=== PATIENT | male | born 1935 | race Caucasian/White ===

== ENCOUNTER → 2018-05-30 | Day surgery (SDC) | payer MEDICARE, BC ==
[2018-05-25 09:14] VITALS: BMI 24.3
[~2018-05-30] MED LIST: ALPRAZolam 0.25 MG TAB PO PRN; ALPRAZolam 0.5 MG TAB PO PRN; ASPIRIN 325 MG TAB PO STA; ATORVASTATIN 80 MG TAB PO STA; BENZOCAINE SPRAY 1 CAN MUCOUS MEM ONE; FUROSEMIDE 10 MG/ML 2 ML VIAL IV ONE; FUROSEMIDE 10 MG/ML 4 ML VIAL ONE; IOPAMIDOL-370 100ML BTL INJ ONE; IV FLUID CONTINUATION 800 ML IV ONE; LIDOCAINE 1% INJ 10MG/ML (20 ML MDV) ONE; LIDOCAINE 1% INJ 10MG/ML (20 ML MDV) SQ ONE; MIDAZOLAM 2 MG/2 ML VIAL IVP ONE; MIDAZOLAM 2 MG/2 ML VIAL ONE; NITROGLYCERIN SL TABS 0.4 MG TAB SUBLINGUAL PRN; SODIUM CHLORIDE 0.9% 1,000 ML IV SCH; SODIUM CHLORIDE 0.9% 1,000 ML in EMPTY BAG 1 BAG IV ONE; diphenhydrAMINE 25 MG CAP PO STA; fentaNYL (PF) 50 MCG/ML 2 ML AMP IVP ONE; fentaNYL (PF) 50 MCG/ML 2 ML AMP ONE
[2018-05-30] MEDS: FUROSEMIDE 10 MG/ML 4 ML VIAL IVP ONE ×2 (08:07→08:52)
[2018-05-30 09:02] VITALS: TEMP 97.8
--- NOTE | 2018-05-30 09:16 | CC ---
CARDIAC CATHETERIZATION REPORT PROCEDURE: Left heart catheterization, coronary angiography and selective injection of bypass grafts. PERFORMED BY: Dr. Nidhi Neely. Moderate conscious sedation time was 31 minutes. Patient was administered Versed and Benadryl and his oxygen saturation, hemodynamics and EKG were monitored closely. CLINICAL INFORMATION: Mr. Neel Martin is an 83-year-old elderly gentleman with a known history of CAD and aortocoronary bypass surgery on two occasions, initially in 1988 with a COTTER to LAD and vein graft to the RCA. In 1998, the vein graft to the RCA was occluded and RCA was occluded, filling by ipsilateral collaterals and he also had disease in the circumflex marginal. In 1998 in January, he had an arterial graft which was gastroepiploic artery to the obtuse marginal graft and this was performed by Dr. Sathya Quintanilla. Since then, he has done well and in 2004 had a cardiac cath which did not reveal the gastroepiploic arteries patency, but this was difficult to inject. COTTER was patent. RCA had collaterals. Over time, he has developed severe aortic stenosis and because of increasing symptoms of shortness of breath and chest tightness, I advised coronary angiography and transesophageal echo and brought him in for the procedure electively after due discussion with the patient and family. The patient was scheduled to have a cardiac cath first and a transesophageal echo to follow by Dr. Hughes. PROCEDURE NOTE: Under local anesthesia and strict aseptic precautions, a 6-Jordanian introducer was placed in the right femoral artery. I used a standard left Patrick catheter to selectively cannulate the left coronary artery. I used a Arielle catheter for the RCA and the same catheter was used for the COTTER injection and also to selectively engage the vein graft to the RCA. The same catheter was used to find the gastroepiploic artery which I could not cannulate. I used a pigtail catheter with a wire to cross the aortic valve and checked LV pressures but did not perform LV gram. Patient tolerated procedure well and all the catheters and sheath was taken out and Angio-Seal device used to secure hemostasis and he was sent to the room in a stable condition. He will have transesophageal echo to follow. CARDIAC CATHETERIZATION FINDINGS: The left ventricular end-diastolic pressure was 28 mmHg. There was a peak gradient of about 40 mmHg across the aortic valve and mean gradient calculated to be about 30 mmHg across the aortic valve making it a moderate to severe aortic stenosis. The left ventricular end-diastolic pressure was elevated at 28 to 30 mmHg. CORONARY ANGIOGRAPHY FINDINGS: LEFT MAIN CORONARY ARTERY: This is totally occluded without any antegrade flow. RIGHT CORONARY ARTERY: This vessel is a dominant one. Very proximally, the vessel is patent, there it gives off what seems to be an acute marginal branch and then the vessel is totally occluded. This acute marginal branch goes out and provides ipsilateral collaterals to opacified the PDA, PLV as well as the distal trunk of RCA. The RCA therefore is totally occluded in the proximal portion, but has ipsilateral collaterals that opacifies the entire distal segment including the PDA and PLV and main trunk. LEFT INTERNAL MAMMARY ARTERY GRAFT TO LAD: this graft is widely patent in its origin, course and insertion site. Opacified LAD runs all the way to the apex and also fills the distal branches of the RCA as well. The circumflex is not opacified by the LAD vessel. There is a diagonal branch also that seems to be patent coming off from the LAD and supplies a fair amount of myocardium. The LAD, therefore is very well opacified with the COTTER injection and also the distal RCA branches are also opacified to some extent. LEFT SAPHENOUS VEIN GRAFT TO THE RCA: This graft is totally occluded and is seen as a stump. GASTROEPIPLOIC ARTERY BYPASS TO THE OBTUSE MARGINAL: I could not cannulate this graft and I presume this was closed because this was not seen on a previous study as well. FINAL IMPRESSION: This patient has a total occlusion of the left main. His right coronary artery is also totally occluded, but there is an acute marginal that provides collaterals opacifying the distal branches of right coronary artery very well. The COTTER to left anterior descending artery is patent, opacifies the entire left anterior descending artery and also the PDA branch of right coronary artery. Circumflex marginal is not seen. Vein graft to the right coronary artery is occluded and the gastroepiploic artery graft to the obtuse marginal, which is an unusual graft is not visualized. This patient also has severe aortic stenosis with a mean gradient of 30 and a peak gradient of about 40 mmHg across the aortic valve. The left ventricle end-diastolic pressure is elevated in the range of 28-30 mmHg. RECOMMENDATIONS: I am recommending a DAPHNEY echo to be performed and following this, we will make a decision regarding the aortic valve replacement for this patient. Possibility of TAVR will be entertained, but first I will look at the DAPHNEY findings and then advise him to see Dr. Sathya Quintanilla regarding TAVR. MMROSAL / CELESTEN: [id number] /
[2018-05-30 09:31] VITALS: RESP 16
--- NOTE | 2018-05-30 09:40 | P.TEE ---
Indications for Procedure(s): To assess aortic stenosis Date of Procedure: 05/30/18 Preoperative Diagnosis: Severe aortic stenosis Postoperative Diagnosis: Moderate to severe aortic stenosis with an opening area of about 1 cm Procedure(s) Performed: DAPHNEY Description of Procedure(s): INDICATION: This is a 82-year-old gentleman with history of ischemic heart disease who has been experiencing shortness of breath. A DAPHNEY is requested to assess the significance of aortic stenosis. CONSENT: Informed consent is obtained from the patient verbally PROCEDURE: Patient was brought to the lab in a fasting state. He was prepped and draped in the usual fashion. The throat was sprayed with Hurricaine. Patient was given 1 mg of Versed and 25 mg of fentanyl for sedation. A lubricated Omni probe was then introduced into the oropharynx and was advanced into the esophagus. Patient tolerated the procedure well. No immediate complications. Saline bubble injection and color pulse wave Doppler's and continuous-wave Doppler was performed. FINDINGS: The aortic valve seems to be tricuspid and calcific with reduced opening excursion. By planimetry valve area of about 0.9-1 cm was obtained. There is moderate aortic regurgitation. The peak gradient was 40 with a mean of about 20. The mitral valve showed central mild regurgitation. The left atrial appendage is free of any clot. The venous flow in the pulmonary veins appear to be normal. The interatrial septum appeared to be intact without any spontaneous shunt. Injection of the saline contrast bubbles did not reveal any crossing of the bubbles across the interatrial septum. The interatrial septum appeared to be hyperdynamic and aneurysmal. Mild tricuspid regurgitation noted. Left ankle function appears to be moderately impaired. There is a moderate to severe plaque in the aorta IMPRESSION: #1. Borderline severe aortic stenosis. #2. Moderately severe aortic regurgitation #3. Mild mitral regurgitation #4. No PFO. The interatrial septum, however, appear to be aneurysmal. #5. No clot in left atrial appendage. #6. There is moderate to severe plaque in the aorta PLAN:. Further evaluation by cardiac catheterization. May consider for possible aortic valve replacement
[2018-05-30] MEDS: IPRATROPIUM 0.5 MG/2.5 ML NEBU INHALATION SCH ×2 (10:27→14:35)
[2018-05-30 16:13] VITALS: BP 119/55; PULSE 55
== END ==
LOC: CATHCVL 07:00
PROVIDERS: ATTEND Internal Medicine Interventional Cardiology
DX: I08.3 Combined rheumatic disorders of mitral, aortic and tricuspid valves (principal); I25.10 Atherosclerotic heart disease of native coronary artery without angina pectoris; I25.810 Atherosclerosis of coronary artery bypass graft(s) without angina pectoris; I25.82 Chronic total occlusion of coronary artery; I25.5 Ischemic cardiomyopathy; I10 Essential (primary) hypertension; I73.9 Peripheral vascular disease, unspecified; Z82.49 Family history of ischemic heart disease and other diseases of the circulatory system; Z72.0 Tobacco use; Z88.8 Allergy status to other drugs, medicaments and biological substances; Z79.82 Long term (current) use of aspirin; Z79.51 Long term (current) use of inhaled steroids; Z79.899 Other long term (current) drug therapy
CPT/HCPCS: 94640 ×2; 93312; 93320; 93325; 93459; C1760; C1769 ×2; C1894; J2250; J1940; J2001; J3010; Q9967

== ENCOUNTER 2018-12-03 21:05 | Inpatient (IN) | payer MEDICARE, BC ==
[2018-12-03 21:51] LABS: Basophils % (A) 0 %; Eosinophils # (A) 0.2 k/uL (0-0.7); Eosinophils % (A) 2 %; HCT 39.8 % (39.0-53.0); HGB 13.2 gm/dL (13.0-17.5); Lymphocytes # (A) 0.1 k/uL (1.0-4.8); Lymphocytes % (A) 1 %; MCH 31.2 pg (25.0-35.0); MCHC 33.1 g/dL (31.0-37.0); MCV 94.2 fL (80.0-100.0); Mean Platelet Volume 7.2; Monocytes # (A) 0.1 k/uL (0-1.0); Monocytes % (A) 1 %; Neutrophils # (A) 9.3 k/uL (1.3-7.7); Neutrophils % (A) 95 %; Platelet Count 127 k/uL (150-450); RBC 4.22 m/uL (4.30-5.90); RDW 15.1 % (11.5-15.5); WBC 9.8 k/uL (3.8-10.6)
[2018-12-03 22:03] LABS: Calcium 8.6 mg/dL (8.4-10.2); Potassium 4.1 mmol/L (3.5-5.1)
[2018-12-03] MEDS ORDERED: IPRATROPIUM-ALBUTEROL 3 ML NEB INHALATION STA (23:05)
--- NOTE | 2018-12-03 23:06 | ED ---
General Adult HPI - General Chief complaint: Shortness of Breath Stated complaint: CHF exasperation Time Seen by Provider: 12/03/18 21:10 Source: EMS Mode of arrival: EMS - History of Present Illness Initial comments: 83-year-old male presenting as a transfer with a diagnosis of CHF and pneumonia. Patient said 1 week prior he became more short of breath which was accompanied by a productive cough of green sputum. He denies any chest pain fever chills. Patient has a history of CABG 33 years ago and intermittent O2 use. He also has a history of COPD and uses DuoNeb's 5 times daily. At the outside facility the patient was tachycardic but normotensive. He had chest x-ray that showed congestion, patchy infiltrate bilaterally in the lower lobes and CHF. He was given 40 mg of Lasix, as well as Levaquin for community acquired pneumonia. 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 Patient's troponin was mildly elevated at 0.03. He was not given aspirin at the outside facility. Patient has a history of AAA with repair. He denies any abdominal pain. He sta salvador he is scheduled for a valve replacement and has had outpatient DAPHNEY done at an outside facility. - Related Data Home Medications Medication Instructions Recorded Confirmed Aspirin 81 mg PO HS 11/22/14 12/03/18 Atenolol [Tenormin] 50 mg PO HS 11/22/14 12/03/18 Losartan [Cozaar] 50 mg PO DAILY 11/22/14 12/03/18 amLODIPine [Norvasc] 5 mg PO DAILY 11/22/14 12/03/18 Tamsulosin HCl [Flomax] 0.4 mg PO BID 12/03/18 12/03/18 Allergies Allergy/AdvReac Type Severity Reaction Status Date / Time No Known Allergies Allergy Verified 12/03/18 22:05 Review of Systems ROS Statement: Those systems with pertinent positive or pertinent negative responses have been documented in the HPI. Review of Systems Constitutional: Denies fever, chills Eyes: Denies change in vision, Denies pain Ears, nose, mouth, throat: Denies headaches, Denies sore throat Cardiovascular: Denies chest pain. Denies palpitations Respiratory: Positive shortness of breath, Positive cough Gastrointestinal: Denies abdominal pain. Denies nausea, vomiting, diarrhea. Genitourinary: Denies hematuria, Denies infections Musculoskeletal: Denies pain, Denies swelling Integumentary: Denies rash Neurological: Denies headache, focal weakness, focal numbness Psychiatric: Denies anxiety, Denies depression Hematologic/Lymphatic: Denies easy bleeding or bruising ROS Other: All systems not noted in ROS Statement are negative. Past Medical History Past Medical History: Coronary Artery Disease (CAD), Heart Failure, COPD, Hypertension, Myocardial Infarction ([place]) Additional Past Medical History / Comment(s): Congestion heart failure with ejection fraction of around 25%, moderate to severe aortic stenosis, monoclonal gammopathy, carotid artery disease with previous endarterectomy, degenerative arthritis, abdominal hernia, history of bowel obstruction, kidney stones, hernia Last Myocardial Infarction Date:: 2004 History of Any Multi-Drug Resistant Organisms: None Reported Past Surgical History: Bowel Resection, Coronary Bypass/CABG Additional Past Surgical History / Comment(s): open heart x 2, abdominal aneursym, calvin carotid endartectomy Past Anesthesia/Blood Transfusion Reactions: No Reported Reaction Additional Past Anesthesia/Blood Transfusion Reaction / Comment(s): STATES HAD TROUBLE "CODED" AFTER CAROTID ENDARTECTOMY Past Psychological History: No Psychological Hx Reported Smoking Status: Former smoker Past Alcohol Use History: Daily - Past Family History Father Family Medical History: No Reported History General Exam - General Exam Comments Initial Comments: General: Awake, alert, No acute Distress HENT: Normocephalic. Atraumatic Eyes: PERRL. EOMI. No scleral icterus. No injected conjunctiva Neck: Full ROM Chest/Lungs: Rales diffusely Cardiac: Regular rate, rhythm. Rate 3 systolic murmur. JVD. Lower extremity pitting edema Abdomen/GI: Soft, nontender, nondistended. No rebound, guarding, or rigidity. Musculoskeletal: Full ROM Skin: Warm, dry, intact Neurologic: A/Ox3, no weakness, no sensory deficit, no abnormal gait, no coordination deficit Course Vital Signs 12/03/18 12/03/18 12/03/18 21:30 23:17 23:26 Temperature 97.6 F Pulse Rate 75 72 76 Respiratory 19 18 18 Rate Blood Pressure 120/66 O2 Sat by Pulse 95 Oximetry EKG Findings - EKG Comments: EKG Findings:: EKG shows normal sinus rhythm with a left bundle branch block at a rate of 78 bpm. ID interval 180 ms, QRS duration 190 ms, QT/QTC 480/547 ms. Medical Decision Making - Medical Decision Making 83-year-old male presenting from outside facility with CHF and pneumonia. Initial exam the patient is awake, alert, no acute distress. Troponin now 1.2. The patient's increasing troponin will start him on heparin. Discussed this with the patient and his family who are agreeable. Denies any recent GI bleeding. Patient was started on Rocephin and Azithromycin. He was also started on Lasix Q8hr. He was not given any in the ED because he was given some at the outside hospital. Patient to be admitted to Dr. Crabtree with cardiology on consu lt. - Lab Data Result diagrams: 12/03/18 21:41 12/03/18 21:41 Lab Results 12/03/18 12/03/18 12/03/18 Range/Units 21:41 21:41 21:41 WBC 9.8 (3.8-10.6) k/uL RBC 4.22 L (4.30-5.90) m/uL Hgb 13.2 (13.0-17.5) gm/dL Hct 39.8 (39.0-53.0) % MCV 94.2 (80.0-100.0) fL MCH 31.2 (25.0-35.0) pg MCHC 33.1 (31.0-37.0) g/dL RDW 15.1 (11.5-15.5) % Plt Count 127 L (150-450) k/uL Neutrophils % 95 % Lymphocytes % 1 % Monocytes % 1 % Eosinophils % 2 % Basophils % 0 % Neutrophils # 9.3 H (1.3-7.7) k/uL Lymphocytes # 0.1 L (1.0-4.8) k/uL Monocytes # 0.1 (0-1.0) k/uL Eosinophils # 0.2 (0-0.7) k/uL Basophils # 0.0 (0-0.2) k/uL Sodium 132 L (137-145) mmol/L Potassium 4.1 (3.5-5.1) mmol/L Chloride 101 (98-107) mmol/L Carbon Dioxide 23 (22-30) mmol/L Anion Gap 8 mmol/L BUN 24 H (9-20) mg/dL Creatinine 1.27 H (0.66-1.25) mg/dL Est GFR (CKD-EPI)AfAm 60 (>60 ml/min/1.73 sqM) Est GFR (CKD-EPI)NonAf 52 (>60 ml/min/1.73 sqM) Glucose 138 H (74-99) mg/dL Calcium 8.6 (8.4-10.2) mg/dL Troponin I (0.000-0.034) ng/mL NT-Pro-B Natriuret Pep 27676 pg/mL 12/03/18 Range/Units 21:41 WBC (3.8-10.6) k/uL RBC (4.30-5.90) m/uL Hgb (13.0-17.5) gm/dL Hct (39.0-53.0) % MCV (80.0-100.0) fL MCH (25.0-35.0) pg MCHC (31.0-37.0) g/dL RDW (11.5-15.5) % Plt Count (150-450) k/uL Neutrophils % % Lymphocytes % % Monocytes % % Eosinophils % % Basophils % % Neutrophils # (1.3-7.7) k/uL Lymphocytes # (1.0-4.8) k/uL Monocytes # (0-1.0) k/uL Eosinophils # (0-0.7) k/uL Basophils # (0-0.2) k/uL Sodium (137-145) mmol/L Potassium (3.5-5.1) mmol/L Chloride (98-107) mmol/L Carbon Dioxide (22-30) mmol/L Anion Gap mmol/L BUN (9-20) mg/dL Creatinine (0.66-1.25) mg/dL Est GFR (CKD-EPI)AfAm (>60 ml/min/1.73 sqM) Est GFR (CKD-EPI)NonAf (>60 ml/min/1.73 sqM) Glucose (74-99) mg/dL Calcium (8.4-10.2) mg/dL Troponin I 1.280 H* (0.000-0.034) ng/mL NT-Pro-B Natriuret Pep pg/mL Disposition Clinical Impression: CHF (congestive heart failure), CAP (community acquired pneumonia), NSTEMI (non-ST elevated myocardial infarction) Disposition: ADMITTED IP TO THIS HOSP Condition: Good Decision to Admit Reason: Admit from EC Decision Date: 12/03/18 Decision Time: 23:36
[2018-12-03] MEDS ORDERED: HEPARIN SODIUM,PORCINE 5,000 UNIT/ML 1 ML VIAL IV PRN (23:55)
[2018-12-03] MEDS ORDERED: HEPARIN SODIUM,PORCINE 5,000 UNIT/ML 1 ML VIAL IV ONE (23:55)
[2018-12-03] MEDS ORDERED: NITROGLYCERIN SL TABS 0.4 MG TAB SUBLINGUAL PRN (23:56)
[2018-12-04] MEDS: HEPARIN SOD,PORK IN 0.45% NACL 25,000 UNIT in 0.45% NACL 1 250ML.BAG IV SCH ×3 (00:31→15:46)
[2018-12-04 02:37] VITALS: BMI 51.8
[2018-12-04 05:37] LABS: Basophils % (A) 0 %; Eosinophils # (A) 0.1 k/uL (0-0.7); Eosinophils % (A) 1 %; HCT 38.5 % (39.0-53.0); HGB 12.7 gm/dL (13.0-17.5); Lymphocytes # (A) 0.3 k/uL (1.0-4.8); Lymphocytes % (A) 4 %; MCH 31.6 pg (25.0-35.0); Mean Platelet Volume 8.3; Monocytes # (A) 0.2 k/uL (0-1.0); Monocytes % (A) 3 %; Neutrophils # (A) 6.3 k/uL (1.3-7.7); Neutrophils % (A) 92 %; Platelet Count 132 k/uL (150-450); RBC 4.01 m/uL (4.30-5.90); RDW 15.1 % (11.5-15.5); WBC 6.9 k/uL (3.8-10.6)
[2018-12-04 05:45] LABS: INR 1.1 (<1.2); Partial Thromboplastin Time 95.8 sec (22.0-30.0); Prothrombin Time 11.3 sec (9.0-12.0)
[2018-12-04 06:15] LABS: Albumin 2.9 g/dL (3.5-5.0); Calcium 8.4 mg/dL (8.4-10.2); Potassium 4.1 mmol/L (3.5-5.1); Total Bilirubin 0.9 mg/dL (0.2-1.3); Total Protein 5.1 g/dL (6.3-8.2)
[2018-12-04] MEDS: LOSARTAN 50 MG TAB PO SCH (08:06)
[2018-12-04] MEDS: TAMSULOSIN 0.4 MG CAP.ER.24H PO SCH ×2 (08:06→22:34)
[2018-12-04] MEDS: ASPIRIN 325 MG TAB PO SCH (08:07)
[2018-12-04] MEDS: amLODIPine 5 MG TAB PO SCH (08:07)
[2018-12-04] MEDS: FUROSEMIDE 10 MG/ML 4 ML VIAL IV SCH ×2 (08:07→15:57)
[2018-12-04] MEDS: AZITHROMYCIN 500 MG in SODIUM CHLORIDE 0.9% 250 ML IVPB SCH (08:16)
[2018-12-04] MEDS: IPRATROPIUM-ALBUTEROL 3 ML NEB INHALATION SCH ×4 (08:22→20:33)
--- NOTE | 2018-12-04 08:47 | XR ---
EXAMINATION TYPE: XR chest 1V portable DATE OF EXAM: 12/04/2018 COMPARISON: 11/21/2014 INDICATION: CHF, pneumonia TECHNIQUE: Single frontal view of the chest is obtained. FINDINGS: The heart size is moderately prominent. The pulmonary vasculature is normal. Some minimal linear opacities at the lung bases more likely due to plate atelectasis. IMPRESSION: 1. Bibasilar platelike atelectasis at the diaphragms. 2. Moderate cardiomegaly
--- NOTE | 2018-12-04 08:55 | P.CRDCN ---
History of Present Illness Consult date: 12/04/18 Chief complaint: Shortness of breath History of present illness: This is an 83-year-old gentleman who sees Dr. HERBIE Neely in the office on regular basis with a past medical history significant for coronary artery disease and status post coronary artery bypass grafting twice, known severe aortic stenosis, known severe aortic insufficiency, advanced chronic obstructive pulmonary disease currently on oxygen at home, as well as multiple comorbid conditions, was admitted to the hospital with shortness of breath. The patient underwent a heart catheterization in May [address] HERBIE Neely and that revealed occluded left main and occluded right coronary artery with patent COTTER to LAD which opacify the LAD very well and also gives collateral to the right coronary artery. At the same time, he underwent transesophageal echocardiogram which r evealed normal LV function with evidence off moderate to severe aortic stenosis and moderate to severe aortic insufficiency. At that point the patient was referred to undergo transcutaneous aortic valve replacement. He was seen by Dr. Quintanilla at that point I subsequently he was seen at [facility]. He was requested to have his teeth workup before the procedure and the patient is currently is doing that. This time, he stated that for the last few days, he has been more short of breath and beside that he has been experiencing cough productive of colored sputum. No fever and no chills. No symptoms of chest pain or chest discomfort. He did develop severe bilateral lower extremities edema. He underwent a chest x-ray and that revealed evidence of congestive heart failure with possible pneumonia. The BMP was checked and came in to be at 15,000. The creatinine is slightly abnormal but it seems to be his baseline from before. Beside that the troponin came in to be elevated at 12.9. The EKG showed sinus rhythm with sinus tachycardia and LBBB. The patient currently is on heparin IV, he is on antibiotic for the pneumonia, and he is on Lasix as well as. He stated that he is feeling better overall. Past Medical History Past Medical History: Coronary Artery Disease (CAD), Heart Failure, COPD, Hypertension, Myocardial Infarction ([place]) Additional Past Medical History / Comment(s): Congestion heart failure with ejec tion fraction of around 25%, moderate to severe aortic stenosis, monoclonal gammopathy, carotid artery disease with previous endarterectomy, degenerative arthritis, abdominal hernia, history of bowel obstruction, kidney stones, hernia Last Myocardial Infarction Date:: 2004 History of Any Multi-Drug Resistant Organisms: None Reported Past Surgical History: Bowel Resection, Coronary Bypass/CABG Additional Past Surgical History / Comment(s): open heart x 2, abdominal aneursym, calvin carotid endartectomy Past Anesthesia/Blood Transfusion Reactions: No Reported Reaction Additional Past Anesthesia/Blood Transfusion Reaction / Comment(s): STATES HAD TROUBLE "CODED" AFTER CAROTID ENDARTECTOMY Past Psychological History: No Psychological Hx Reported Smoking Status: Former smoker Past Alcohol Use History: Daily - Past Family History Father Family Medical History: No Reported History Medications and Allergies Home Medications Medication Instructions Recorded Confirmed Type Aspirin 81 mg PO HS 11/22/14 12/03/18 History Atenolol [Tenormin] 50 mg PO HS 11/22/14 12/03/18 History Losartan [Cozaar] 50 mg PO DAILY 11/22/14 12/03/18 History amLODIPine [Norvasc] 5 mg PO DAILY 11/22/14 12/03/18 History Tamsulosin HCl [Flomax] 0.4 mg PO BID 12/03/18 12/03/18 History Allergies Allergy/AdvReac Type Severity Reaction Status Date / Time No Known Allergies Allergy Verified 12/03/18 22:05 Physical Exam Vitals: Vital Signs Temp Pulse Pulse Resp BP BP Pulse Ox 12/04/18 08:36 92 12/04/18 08:22 88 12/04/18 08:19 74 12/04/18 07:48 97.4 F L 74 16 120/63 97 12/04/18 04:00 97.6 F 68 16 118/62 100 12/04/18 00:42 80 20 106/65 94 L 12/04/18 00:12 97.8 F 64 20 122/68 97 12/03/18 23:26 76 18 12/03/18 23:17 72 18 12/03/18 21:30 97.6 F 75 19 120/66 95 Intake and Output 12/03/18 12/04/18 12/04/18 22:59 06:59 14:59 Intake Total 56.96 0 Output Total 100 Balance -43.04 0 Intake: Intake, IV Titration 56.96 0 Amount Heparin Sod,Pork in 0.45% 56.96 0 NaCl 25,000 unit In 0.45 % NaCl 1 250ml.bag @ 12 UNITS/KG/HR 9.906 mls/hr IV .Q24H [facility] Rx#: [id number] Output: Urine 100 Other: Weight 82.554 kg - Constitutional General appearance: no acute distress - Respiratory Respiratory: bilateral: rales - Cardiovascular Rhythm: regular Heart sounds: normal: S1 Abnormal Heart Sounds: systolic murmur Results 12/04/18 05:22 12/04/18 05:22 Cardiac Enzymes 12/03/18 12/04/18 12/04/18 Range/Units 21:41 03:16 05:22 AST 30 (17-59) U/L Troponin I 1.280 H* 1.910 H* (0.000-0.034) ng/mL Coagulation 12/04/18 Range/Units 05:22 PT 11.3 (9.0-12.0) sec APTT 95.8 H (22.0-30.0) sec Lipids 12/04/18 Range/Units 05:22 Triglycerides 48 (<150) mg/dL Cholesterol 167 (<200) mg/dL HDL Cholesterol 71 H (40-60) mg/dL CBC 12/03/18 12/04/18 Range/Units 21:41 05:22 WBC 9.8 6.9 (3.8-10.6) k/uL RBC 4.22 L 4.01 L (4.30-5.90) m/uL Hgb 13.2 12.7 L (13.0-17.5) gm/dL Hct 39.8 38.5 L (39.0-53.0) % Plt Count 127 L 132 L (150-450) k/uL Comprehensive Metabolic Panel 12/03/18 12/04/18 Range/Units 21:41 05:22 Sodium 132 L 135 L (137-145) mmol/L Potassium 4.1 4.1 (3.5-5.1) mmol/L Chloride 101 102 (98-107) mmol/L Carbon Dioxide 23 27 (22-30) mmol/L BUN 24 H 30 H (9-20) mg/dL Creatinine 1.27 H 1.48 H (0.66-1.25) mg/dL Glucose 138 H 160 H (74-99) mg/dL Calcium 8.6 8.4 (8.4-10.2) mg/dL AST 30 (17-59) U/L ALT 36 (21-72) U/L Alkaline Phosphatase 47 (38-126) U/L Total Protein 5.1 L (6.3-8.2) g/dL Albumin 2.9 L (3.5-5.0) g/dL Current Medications Generic Name Dose Route Start Last Admin Trade Name Freq PRN Reason Stop Dose Admin Albuterol/Ipratropium 3 ml 12/04/18 08:00 12/04/18 08:22 Duoneb 0.5 Mg-3 Mg/3 Ml Soln INHALATION 3 ml RT-QID ALAN Administration Amlodipine Besylate 5 mg 12/04/18 09:00 12/04/18 08:07 Norvasc PO 5 mg DAILY ALAN Administration Aspirin 325 mg 12/04/18 09:00 12/04/18 08:07 Aspirin PO 325 mg DAILY ALAN Administration Atenolol 50 mg 12/04/18 21:00 Tenormin PO HS ALAN Furosemide 40 mg 12/04/18 08:00 12/04/18 08:07 Lasix IV 40 mg Q8HR ALAN Administration Heparin Sodium (Porcine) 0 unit 12/03/18 23:55 Heparin IV PER PROTOCOL PRN Low PTT Protocol Heparin Sodium/Sodium Chloride 250 mls @ 9.906 mls/hr 12/03/18 23:45 12/04/18 07:42 25,000 unit/ Sodium Chloride IV 9 units/kg/hr .Q24H ALAN 7.43 mls/hr Administration Protocol 12 UNITS/KG/HR Azithromycin 500 mg/ Sodium 250 mls @ 250 mls/hr 12/04/18 09:00 12/04/18 08:16 Chloride IVPB 250 mls/hr DAILY ALAN Administration Ceftriaxone Sodium 1 gm/ 50 mls @ 100 mls/hr 12/04/18 09:00 12/04/18 08:07 Sodium Chloride IVPB 100 mls/hr Q24HR ALAN Administration Losartan Potassium 50 mg 12/04/18 09:00 12/04/18 08:06 Cozaar PO 50 mg DAILY ALAN Administration Nitroglycerin 0.4 mg 12/03/18 23:56 Nitrostat SUBLINGUAL Q5M PRN Chest Pain Tamsulosin HCl 0.4 mg 12/04/18 09:00 12/04/18 08:06 Flomax PO 0.4 mg BID ALAN Administration Intake and Output 12/03/18 12/04/18 12/04/18 22:59 06:59 14:59 Intake Total 56.96 0 Output Total 100 Balance -43.04 0 Intake: Intake, IV Titration 56.96 0 Amount Heparin Sod,Pork in 0.45% 56.96 0 NaCl 25,000 unit In 0.45 % NaCl 1 250ml.bag @ 12 UNITS/KG/HR 9.906 mls/hr IV .Q24H [facility] Rx#: [id number] Output: Urine 100 Other: Weight 82.554 kg 12/04/18 05:22 12/04/18 05:22 Assessment and Plan Assessment: Assessment #1 acute hypoxic respiratory failure #2 congestive heart failure exacerbation likely secondary to diastolic dysfunction and aortic stenosis #3 pneumonia #4 COPD exacerbation #5 severe aortic stenosis and aortic insufficiency #6 severe underlying coronary artery disease as described above #7 acute non-ST elevation myocardial infarction #8 multiple comorbid conditions including hypertension, dyslipidemia, and history of AAA repair Plan #1 the acute non-ST deviation myocardial infarction is likely to be type II [place] related to hypoxemia and oxygen mismatch #2 giving the above anatomy on his recent heart catheterization in May, I would not recommend proceeding with any coronary angiogram at this point #3 continue the heparin IV for additional 24 hours #4 continue the Lasix IV for now #5 monitor the kidney function and electrolytes #6 he is on antibiotic for possible pneumonia #7 I will repeat the echocardiogram #8 follow-up with the patient Thank you for allowing us participate in his care and we will continue following up with the patient
[2018-12-04] MEDS ORDERED: AZITHROMYCIN 500 MG in SODIUM CHLORIDE 0.9% 250 ML IVPB SCH (09:00)
[2018-12-04] MEDS ORDERED: cefTRIAXone IN SWFI 1,000 MG/10 ML SYRINGE IVP SCH (09:00)
--- NOTE | 2018-12-04 10:11 | P.HPIM ---
History of Present Illness H&P Date: 12/04/18 This is an 83-year-old male patient of Dr. Israel. Patient presented with complaints of increased shortness of breath. Patient reports his symptoms started approximately 1 week ago. Patient also reports that he has had increased sputum production with green sputum. Patient denies any fevers. [place] also reports he had increased peripheral edema. Patient does have a past medical history of coronary artery disease status post coronary artery bypass graft surgery twice. Patient recently underwent cardiac cath in May 2018 and DAPHNEY which revealed severe aortic stenosis severe aortic insufficiency. Patient reports that he was evaluated by our cardiothoracic team was seen at [facility] in which they referred him to undergo transcutaneous aortic valve replacement. Patient reports he has been doing the pre-op workup including dental work in which he has completed. Additional medical history includes congestive heart failure with an EF of 25%, degenerative arthritis, COPD, hy pertension, bowel obstruction and myocardial infarction. EKG completed showing normal sinus rhythm. Left bundle branch block. X-ray completed showing bibasilar platelike atelectasis at the diaphragms. Moderate cardiomegaly. Troponins 1.280, 1.910. Started on heparin drip and cardiology services have been consulted. ENT elevated at 14,400. Patient started on IV Lasix 40 mg every 8 hours. Sputum culture ordered. Patient started on Zithromax and Rocephin for pneumonia. Pulmonary services have been consulted. At this time patient reports he does feel improved. Still having significant sputum production. Patient denies chest pain. Patient denies any nausea vomiting or diarrhea. Patient denies any urinary burning or frequency Review of Systems please refer to HPI otherwise unremarkable Past Medical History Past Medical History: Coronary Artery Disease (CAD), Heart Failure, COPD, Hypertension, Myocardial Infarction ([place]) Additional Past Medical History / Comment(s): Congestion heart failure with ejection fraction of around 25%, moderate to severe aortic stenosis, monoclonal gammopathy, carotid artery disease with previous endarterectomy, degenerative arthritis, abdominal hernia, history of bowel obstruction, kidney stones, hernia Last Myocardial Infarction Date:: 2004 History of Any Multi-Drug Resistant Organisms: None Reported Past Surgical History: Bowel Resection, Coronary Bypass/CABG Additional Past Surgical History / Comment(s): open heart x 2, abdominal aneursym, calvin carotid endartectomy Past Anesthesia/Blood Transfusion Reactions: No Reported Reaction Additional Past Anesthesia/Blood Transfusion Reaction / Comment(s): STATES HAD TROUBLE "CODED" AFTER CAROTID ENDARTECTOMY Past Psychological History: No Psychological Hx Reported Smoking Status: Former smoker Past Alcohol Use History: Daily - Past Family History Father Family Medical History: No Reported History Medications and Allergies Home Medications Medication Instructions Recorded Confirmed Type Aspirin 81 mg PO HS 11/22/14 12/03/18 History Atenolol [Tenormin] 50 mg PO HS 11/22/14 12/03/18 History Losartan [Cozaar] 50 mg PO DAILY 11/22/14 12/03/18 History amLODIPine [Norvasc] 5 mg PO DAILY 11/22/14 12/03/18 History Tamsulosin HCl [Flomax] 0.4 mg PO BID 12/03/18 12/03/18 History Allergies Allergy/AdvReac Type Severity Reaction Status Date / Time No Known Allergies Allergy Verified 12/03/18 22:05 Physical Exam Vitals: Vital Signs Temp Pulse Pulse Resp BP BP Pulse Ox 12/04/18 08:36 92 12/04/18 08:22 88 12/04/18 08:19 74 12/04/18 07:48 97.4 F L 74 16 120/63 97 12/04/18 04:00 97.6 F 68 16 118/62 100 12/04/18 00:42 80 20 106/65 94 L 12/04/18 00:12 97.8 F 64 20 122/68 97 12/03/18 23:26 76 18 12/03/18 23:17 72 18 12/03/18 21:30 97.6 F 75 19 120/66 95 Intake and Output 12/03/18 12/04/18 12/04/18 22:59 06:59 14:59 Intake Total 56.96 240 Output Total 100 350 Balance -43.04 -110 Intake: Intake, IV Titration 56.96 0 Amount Heparin Sod,Pork in 0.45% 56.96 0 NaCl 25,000 unit In 0.45 % NaCl 1 250ml.bag @ 12 UNITS/KG/HR 9.906 mls/hr IV .Q24H [facility] Rx#: [id number] Oral 240 Output: Urine 100 350 Other: Weight 82.554 kg Head normocephalic Neck supple Lungs diminished bilaterally Heart regular rate and rhythm S1-S2, no rub or gallop Abdomen is soft nontender nondistended positive bowel sounds no hepatosplenomegaly Extremities +1 bilateral lower extremity edema Neuro alert and orientated to 3 Results CBC & Chem 7: 12/04/18 05:22 12/04/18 05:22 Labs: Abnormal Lab Results - Last 24 Hours (Table) 12/03/18 12/03/18 12/03/18 Range/Units 21:41 21:41 21:41 RBC 4.22 L (4.30-5.90) m/uL Hgb (13.0-17.5) gm/dL Hct (39.0-53.0) % Plt Count 127 L (150-450) k/uL Neutrophils # 9.3 H (1.3-7.7) k/uL Lymphocytes # 0.1 L (1.0-4.8) k/uL APTT (22.0-30.0) sec Sodium 132 L (137-145) mmol/L BUN 24 H (9-20) mg/dL Creatinine 1.27 H (0.66-1.25) mg/dL Glucose 138 H (74-99) mg/dL Troponin I 1.280 H* (0.000-0.034) ng/mL Total Protein (6.3-8.2) g/dL Albumin (3.5-5.0) g/dL HDL Cholesterol (40-60) mg/dL 12/04/18 12/04/18 12/04/18 Range/Units 03:16 05:22 05:22 RBC 4.01 L (4.30-5.90) m/uL Hgb 12.7 L (13.0-17.5) gm/dL Hct 38.5 L (39.0-53.0) % Plt Count 132 L (150-450) k/uL Neutrophils # (1.3-7.7) k/uL Lymphocytes # 0.3 L (1.0-4.8) k/uL APTT 95.8 H (22.0-30.0) sec Sodium (137-145) mmol/L BUN (9-20) mg/dL Creatinine (0.66-1.25) mg/dL Glucose (74-99) mg/dL Troponin I 1.910 H* (0.000-0.034) ng/mL Total Protein (6.3-8.2) g/dL Albumin (3.5-5.0) g/dL HDL Cholesterol (40-60) mg/dL 12/04/18 Range/Units 05:22 RBC (4.30-5.90) m/uL Hgb (13.0-17.5) gm/dL Hct (39.0-53.0) % Plt Count (150-450) k/uL Neutrophils # (1.3-7.7) k/uL Lymphocytes # (1.0-4.8) k/uL APTT (22.0-30.0) sec Sodium 135 L (137-145) mmol/L BUN 30 H (9-20) mg/dL Creatinine 1.48 H (0.66-1.25) mg/dL Glucose 160 H (74-99) mg/dL Troponin I (0.000-0.034) ng/mL Total Protein 5.1 L (6.3-8.2) g/dL Albumin 2.9 L (3.5-5.0) g/dL HDL Cholesterol 71 H (40-60) mg/dL Thrombosis Risk Factor Assmnt - Choose All That Apply Each Factor Represents 1 point: Abnormal pulmonary function (COPD), Acute ID, Heart failure (<1month), Serious lung disease incl. pneumonia (< 1month) Other Risk Factors: Yes Each Risk Factor Represents 3 Points: Age 75 years or older Other congenital or acquired thrombophilia - If yes, enter type in comment: No Thrombosis Risk Factor Assessment Total Risk Factor Score: 7 Thrombosis Risk Factor Assessment Level: High Risk Assessment and Plan Assessment: 1. Acute hypoxic respiratory failure related to CHF exacerbation and pneumonia. Chest x-ray completed showing bibasilar platelike atelectasis at the diaphragm. Moderate cardiomegaly. Cardiology services have been consulted. Pulmonary service is consulted. Patient started on Rocephin and Zithromax IV an tibiotics. Sputum culture ordered 2. Acute on chronic diastolic just of heart failure. Patient maintained on 40 mg IV Lasix BNP elevated at 14,400. Cardiology services have been consulted. 2-D echo has been ordered 3. Acute non-ST elevated myocardial infarction. Troponin elevated 1.280 and 1.10 Patient maintained on heparin drip cardiology services are following 4. Severe aortic stenosis and aortic insufficiency. Patient is being followed at [facility] for workup for TAVR. 5. Acute on chronic renal disease. Creatinine 1.48 and 30. This does appear to be patient's baseline we'll continue to monitor 6. Severe underlining coronary artery disease with recent heart cath in 2017 7. History of COPD 8. History of essential hypertension 9. History of hyperlipidemia 10. History of AAA repair 11. History of previous coronary artery bypass graft surgery DVT prophylaxis heparin drip. GI prophylaxis Protonix Cardiology and pulmonary services consulted. Patient currently on heparin drip. 2-D echo ordered Azithromycin and Rocephin for IV antibiotics Lasix 40 twice a day Time with Patient: Greater than 30 (Greater than 60% of the total time spent in counseling and coordination of care. I performed an examination of the patient and discussed their management with the Nurse Practitioner. I have reviewed the Nurse Practitioner's notes and agree with the documented findings and plan of care)
[2018-12-04] MEDS ORDERED: ACETAMINOPHEN TAB 325 MG TAB PO PRN (11:34)
[2018-12-04] MEDS: INSULIN ASPART (NovoLOG) 100 UNIT/ML VIAL SQ SCH ×3 (12:13→22:35)
--- NOTE | 2018-12-04 14:48 | ECHOF ---
Referral Reason:nstemi MEASUREMENTS -------- HEIGHT: 182.9 cm WEIGHT: 82.6 kg BP: 120/63 RVIDd: 4.0 cm (< 3.3) IVSd: 1.5 cm (0.6 - 1.1) LVIDd: 6.1 cm (3.9 - 5.3) LVPWd: 1.5 cm (0.6 - 1.1) IVSs: 1.8 cm LVIDs: 5.6 cm LVPWs: 1.6 cm LA Diam: 4.5 cm (2.7 - 3.8) LAESV Index (A-L): 33.20 ml/m Ao Diam: 3.6 cm (2.0 - 3.7) AV Cusp: 1.6 cm (1.5 - 2.6) MV EXCURSION: 17.354 mm (> 18.000) MV EF SLOPE: 91 mm/s (70 - 150) EPSS: 2.3 cm MV E Nick: 1.05 m/s MV DecT: 88 ms MV A Nick: 0.74 m/s MV E/A Ratio: 1.42 AV maxP.16 mmHg AV meanP.66 mmHg AR PHT: 170 ms RAP: 5.00 mmHg RVSP: 46.82 mmHg FINDINGS -------- Sinus rhythm. This was a technically good study. History of heart surgery The left ventricle is mildly dilated. There is moderate concentric left ventricular hypertrophy. Overall left ventricular systolic function is severely impaired with, an EF between 25 - 30 %. Basa l inferior LV wall motion is hypokinetic. Basal inferoseptal LV wall motion is dyskinetic. Mid i nferior LV wall motion is hypokinetic. Mid inferoseptal LV wall motion is hypokinetic. Apical i nferior LV wall motion is hypokinetic. Apical septum LV wall motion is hypokinetic. The right ventricle is moderately enlarged. LA is moderately dilated 34-39 ml/m2 The right atrium is normal in size. Interatrial and interventricular septum intact. There is moderate to severe aortic valve sclerosis. There is moderate aortic regurgitation. There is rfghorwk-dj-lgtgim aortic stenosis present. Peak/mean gradient across the Aortic Valve is 49.16 mmHg / 28.66mmHg. The mitral valve leaflets are mildly thickened. Mild mitral annular calcification present. Modera lt-kr-swewlw mitral regurgitation is present. Moderate to severe tricuspid regurgitation present. There is moderate pulmonary hypertension. The right ventricular systolic pressure, as measured by Doppler, is 46.82mmHg. Trace/mild (physiologic) pulmonic regurgitation. The aortic root size is normal. Normal inferior vena cava with normal inspiratory collapse consistent with estimated right atrial pre ssure of 5 mmHg. There is no pericardial effusion. CONCLUSIONS -------- 1. Sinus rhythm. 2. This was a technically good study. 3. History of heart surgery 4. The left ventricle is mildly dilated. 5. There is moderate concentric left ventricular hypertrophy. 6. Overall left ventricular systolic function is severely impaired with, an EF between 25 - 30 %. 7. Basal inferior LV wall motion is hypokinetic. 8. Basal inferoseptal LV wall motion is dyskinetic. 9. Mid inferior LV wall motion is hypokinetic. 10. Mid inferoseptal LV wall motion is hypokinetic. 11. Apical inferior LV wall motion is hypokinetic. 12. Apical septum LV wall motion is hypokinetic. 13. The right ventricle is moderately enlarged. 14. LA is moderately dilated 34-39 ml/m2 15. The right atrium is normal in size. 16. Interatrial and interventricular septum intact. 17. There is moderate to severe aortic valve sclerosis. 18. There is moderate aortic regurgitation. 19. There is kvqmdgrd-fx-ikzguz aortic stenosis present. 20. Peak/mean gradient across the Aortic Valve is 49.16mmHg / 28.66mmHg. 21. The mitral valve leaflets are mildly thickened. 22. Mild mitral annular calcification present. 23. Kzkxhdvg-iu-nshnom mitral regurgitation is present. 24. Moderate to severe tricuspid regurgitation present. 25. There is moderate pulmonary hypertension. 26. The right ventricular systolic pressure, as measured by Doppler, is 46.82mmHg. 27. Trace/mild (physiologic) pulmonic regurgitation. 28. The aortic root size is normal. 29. Normal inferior vena cava with normal inspiratory collapse consistent with estimated right atrial pressure of 5 mmHg. 30. There is no pericardial effusion. [employer]IST: Liza Echeverria [facility]
--- NOTE | 2018-12-04 16:13 | P.CNPUL ---
History of Present Illness Consult date: 12/04/18 Reason for consult: dyspnea History of present illness: This is an 83-year-old gentleman who sees Dr. HERBIE Neely in the office on regular basis with a past medical history significant for coronary artery disease and status post coronary artery bypass grafting twice, known severe aortic stenosis, known severe aortic insufficiency, advanced chronic obstructive pulmonary disease currently on oxygen at home, as well as multiple comorbid conditions, was admitted to the hospital with shortness of breath. The patient underwent a heart catheterization in May [address] HERBIE Neely and that revealed occluded left main and occluded right coronary artery with patent COTTER to LAD which opacify the LAD very well and also gives collateral to the right coronary artery. At the same time, he underwent transesophageal echocardiogram which revealed normal LV function with evidence off moderate to severe aortic stenosis and moderate to severe aortic insufficiency. The patient subsequently underwent a DAPHNEY to assess the aortic valve. The patient was found to have severe aortic valve stenosis with a valve area of 0.9 cm, moderate degree of aortic regurgitation, peak gradient of 40 across the aortic valve and there was moderate to severe plaque in the aorta At that point the patient was referred to undergo transcutaneous aortic valve replacement. He was seen by Dr. Quintanilla at that point I subsequently he was seen at [facility]. He was requested to have his teeth workup before the procedure and the patient is currently is doing that. This time, he stated that for the last few days, he has been more short of breath and beside that he has been experiencing cough productive of colored sputum. No fever and no chills. No symptoms of chest pain or chest discomfort. He did develop severe bilateral lower extremities edema. He underwent a chest x-ray and that revealed evidence of congestive heart failure with possible pneumonia. The BNP was checked and came in to be at 15,000. The creatinine is slightly abnormal but it seems to be his baseline from before. Beside that the troponin came in to be elevated at 12.9. The EKG showed sinus rhythm with sinus tachycardia and LBBB. In terms of his COPD, the patient is known to have COPD with a baseline FEV1 of 39% of predicted. His room air pulse ox typically is around 95%. He is on a combination of Breo Ellipta and Incrus one inhalation a day and he uses albuterol rescue inhaler on an as-needed basis. During the cold weather, the patient typically gets more short of breath and bronchospastic and wheezy. Nevertheless, he has not had any significant COPD exacerbations. The patient was last seen in our office and he was still being investigated for a TAVR procedure. He was noted to have some increased edema and fluid overload and for that reason he was started on Lasix 20 mg by mouth daily. Review of Systems Constitutional Constitutional: no fever, no night sweats, no significant weight gain, no significant weight loss, exercise intolerance and the patient is exertional dyspnea. Eyes Eyes: no dry eyes, no vision change, no irritation ENMT Ears: no difficulty hearing, no ear pain Nose: no frequent nosebleeds, no nose problems, no sinus problems Mouth/Throat: no sore throat, no bleeding gums, no snoring, no dry mouth, no mouth ulcers, no oral abnormalities, no teeth problems Cardiovascular Cardiovascular: no chest pain, no arm pain on exertion, no shortness of breath when lying down, no palpitations, no known heart murmur, shortness of breath when walking Respiratory Respiratory: no cough, no wheezing, no coughing up blood, no sleep apnea, shortness of breath and exertional dyspnea. Gastrointestinal Gastrointestinal: no abdominal pain, no nausea, no vomiting, no constipation, normal appetite, no diarrhea, not vomiting blood, no dyspepsia, no GERD Genitourinary Genitourinary: no incontinence, no difficulty urinating, no hematuria, increased urinary frequency Musculoskeletal Musculoskeletal: no muscle aches, no muscle weakness, no arthralgias/joint pain, no back pain, no swelling in the extremities Integumentary Skin: no abnormal mole, no jaundice, no rashes, no laceration Neurologic Neurologic: no loss of consciousness, no weakness, no numbness, no seizures, no dizziness, no migraines, no headaches, no tremor Psychiatric Psych: no depression, no sleep disturbances, feeling safe in a relationship, no alcohol abuse, no anxiety, no hallucinations, no suicidal thoughts Endocrine Endocrine: n increased fatigue Hematologic/Lymphatic Hematologic/Lymphatic no swollen glands, no bruising, no excessive bleeding Allergic/Immunologic Allergy/Immunologic: no runny nose, no sinus pressure, no itching, no hives, no frequent sneezing Past Medical History Past Medical History: Coronary Artery Disease (CAD), Heart Failure, COPD, Hypertension, Myocardial Infarction ([place]) Additional Past Medical History / Comment(s): Coronary artery disease, previous bypass surgery, severe aortic stenosis with a valve area of 0.9 cm and preserved LV function, COPD with a baseline FEV1 of 39% of predicted , monoclonal gammopathy, carotid artery disease with previous endarterectomy, degenerative arthritis, abdominal hernia, history of bowel obstruction, kidney stones, hernia, history of bladder cancer Last Myocardial Infarction Date:: 2004 History of Any Multi-Drug Resistant Organisms: None Reported Past Surgical History: Bowel Resection, Coronary Bypass/CABG Additional Past Surgical History / Comment(s): Morning artery bypass surgery x 2, abdominal aneursym, cavlin carotid endartectomy, abdominal aortic aneurysm repair Past Anesthesia/Blood Transfusion Reactions: No Reported Reaction Additional Past Anesthesia/Blood Transfusion Reaction / Comment(s): STATES HAD TROUBLE "CODED" AFTER CAROTID ENDARTECTOMY Past Psychological History: No Psychological Hx Reported Smoking Status: Former smoker Past Alcohol Use History: Daily - Past Family History Father Family Medical History: No Reported History Medications and Allergies Home Medications Medication Instructions Recorded Confirmed Type Aspirin 81 mg PO HS 11/22/14 12/03/18 History Atenolol [Tenormin] 50 mg PO HS 11/22/14 12/03/18 History Losartan [Cozaar] 50 mg PO DAILY 11/22/14 12/03/18 History amLODIPine [Norvasc] 5 mg PO DAILY 11/22/14 12/03/18 History Tamsulosin HCl [Flomax] 0.4 mg PO BID 12/03/18 12/03/18 History Allergies Allergy/AdvReac Type Severity Reaction Status Date / Time No Known Allergies Allergy Verified 12/03/18 22:05 Physical Exam Vitals: Vital Signs Temp Pulse Pulse Resp BP BP Pulse Ox 12/04/18 12:00 97.5 F L 74 16 109/57 96 12/04/18 11:56 88 12/04/18 11:45 88 12/04/18 08:36 92 12/04/18 08:22 88 12/04/18 08:19 74 12/04/18 07:48 97.4 F L 74 16 120/63 97 12/04/18 04:00 97.6 F 68 16 118/62 100 12/04/18 00:42 80 20 106/65 94 L 12/04/18 00:12 97.8 F 64 20 122/68 97 05/26/19 23:26 76 18 12/03/18 23:17 72 18 12/03/18 21:30 97.6 F 75 19 120/66 95 Intake and Output 12/03/18 12/04/18 12/04/18 22:59 06:59 14:59 Intake Total 56.96 600 Output Total 100 350 Balance -43.04 250 Intake: Intake, IV Titration 56.96 0 Amount Heparin Sod,Pork in 0.45% 56.96 0 NaCl 25,000 unit In 0.45 % NaCl 1 250ml.bag @ 12 UNITS/KG/HR 9.906 mls/hr IV .Q24H [facility] Rx#: [id number] Oral 600 Output: Urine 100 350 Other: Weight 82.554 kg General Appearance no diaphoresis, no respiratory distress, speech not interrupted by breaths, no pallor, not cachectic, well nourished, appears well, dyspnea HEENT no pursed lip breathing, no jugular venous distention, no mucous membrane cyanosis, no perioral cyanosis, mallampati classification: class 1 Chest no barrel chest, no retractions, no sternocleidomastoid muscle contractions, no supraclavicular retractions, no intercostal retractions, no decreased air movement, no rhonchi, no hyperinflation, decreased air movement, adventitious sounds: rales / crackles: bilaterally: midlung ocampo Heart no right ventricular heave, no distant heart sounds, no s3 gallop, (normal) jugular vein: jugular venous distention: by 0cm, Murmurs: Unspecified Location: Systolic: Grade 4 / IV (systolic murmur grade 3/6) GI bowel sounds: hyperactive (borborygmi), bowel sounds: diminished or absent (abdominal wall hernia) Extremities no cyanosis, no clubbing, there is +1 pitting edema bilaterally Neurologic no decreased mental status, no somnolence, no confusion Examination of the skin revealed no evidence of significant rashes, suspicious appearing nevi or other concerning lesions. Results - Laboratory Findings CBC and BMP: 12/04/18 05:22 12/04/18 05:22 PT/INR, D-dimer PT 11.3 sec (9.0-12.0) 12/04/18 05:22 INR 1.1 (<1.2) 12/04/18 05:22 Abnormal lab findings: Abnormal Labs 12/03/18 12/03/18 12/03/18 21:41 21:41 21:41 RBC 4.22 L Hgb Hct Plt Count 127 L Neutrophils # 9.3 H Lymphocytes # 0.1 L APTT Sodium 132 L BUN 24 H Creatinine 1.27 H Glucose 138 H Troponin I 1.280 H* Total Protein Albumin HDL Cholesterol 12/04/18 12/04/18 12/04/18 03:16 05:22 05:22 RBC 4.01 L Hgb 12.7 L Hct 38.5 L Plt Count 132 L Neutrophils # Lymphocytes # 0.3 L APTT 95.8 H Sodium BUN Creatinine Glucose Troponin I 1.910 H* Total Protein Albumin HDL Cholesterol 12/04/18 12/04/18 12/04/18 05:22 10:50 14:16 RBC Hgb Hct Plt Count Neutrophils # Lymphocytes # APTT 38.5 H Sodium 135 L BUN 30 H Creatinine 1.48 H Glucose 160 H Troponin I 1.360 H* Total Protein 5.1 L Albumin 2.9 L HDL Cholesterol 71 H - Diagnostic Findings Chest x-ray: image reviewed Assessment and Plan Plan: 1 acute hypoxic respiratory failure essentially seconds underlying decompensated heart failure. The patient is known to have valvular heart disease with severe aortic stenosis and a impaired LV function. Consider underlying systolic heart failure. Pneumonia is doubtful. 2 coronary artery disease with an acute and STEMI with a troponin max of 1.2 and the patient is currently on IV heparin and patient's free of any chest pain 3 COPD severe with an FEV1 of 39% of predicted 4 shortness of breath, chronic with acute decompensation secondary to above 5 coronary artery disease with previous carotid bypass surgery 6 severe aortic stenosis with a valve area of 0.9 cm and the patient is being considered for TAVR through [facility] 7 acute kidney injury with a creatinine of 1.4 8 hypertension 9 hyperlipidemia 10 abdominal aortic and resumed, the. 11 carotids artery disease with bilateral endarterectomy 12 bladder cancer Plan This patient is presented with decompensated heart failure. The patient's echocardiogram showed impairment in the LV function with an ejection fraction of 25-30%. This is consistent with severe LV impairment. The patient also has a mother degree of concentric left ventricular hypertrophy. The patient also has severe aortic stenosis as seen on previous DAPHNYE. The patient is currently being subjected to diuretics receiving IV Lasix 40 mg every 8 hours. Antibiotics can be discontinued as I do not see any evidence of pneumonia at this point in time. Peer Counselor consult on this patient. Restart DuoNeb nebulized treatments around the clock 4 times a day and when necessary. Cardiology consultation. We'll continue to follow.
[2018-12-04 16:53] LABS: Glucose,Whole Blood 115 mg/dL (75-99)
[2018-12-04] MEDS ORDERED: ATENOLOL 50 MG TAB PO SCH (21:00)
[2018-12-04 21:23] LABS: Glucose,Whole Blood 119 mg/dL (75-99)
[2018-12-04] MEDS: KETOTIFEN 0.025% OPHTH DROPS 5 ML BTL BOTH EYES SCH (22:28)
[2018-12-04] MEDS: LATANOPROST 0.005% OPHTH DROPS 2.5 ML BTL BOTH EYES SCH (22:30)
[2018-12-05] MEDS: FUROSEMIDE 10 MG/ML 4 ML VIAL IV SCH ×3 (00:38→19:50)
[2018-12-05 05:48] LABS: Glucose,Whole Blood 108 mg/dL (75-99)
[2018-12-05 05:58] LABS: Basophils % (A) 0 %; Eosinophils # (A) 0.1 k/uL (0-0.7); Eosinophils % (A) 2 %; HCT 38.5 % (39.0-53.0); HGB 12.6 gm/dL (13.0-17.5); Lymphocytes # (A) 0.6 k/uL (1.0-4.8); Lymphocytes % (A) 8 %; MCH 31.7 pg (25.0-35.0); MCHC 32.8 g/dL (31.0-37.0); MCV 96.5 fL (80.0-100.0); Mean Platelet Volume 8.1; Monocytes # (A) 0.4 k/uL (0-1.0); Monocytes % (A) 5 %; Neutrophils # (A) 5.9 k/uL (1.3-7.7); Neutrophils % (A) 84 %; Platelet Count 137 k/uL (150-450); RBC 3.98 m/uL (4.30-5.90); RDW 15.2 % (11.5-15.5)
[2018-12-05] MEDS: HEPARIN SOD,PORK IN 0.45% NACL 25,000 UNIT in 0.45% NACL 1 250ML.BAG IV SCH (06:02)
[2018-12-05] MEDS: PANTOPRAZOLE 40 MG TABLET PO SCH (06:07)
[2018-12-05 06:27] LABS: Albumin 3.1 g/dL (3.5-5.0); Calcium 8.6 mg/dL (8.4-10.2); Potassium 4.2 mmol/L (3.5-5.1); Total Bilirubin 0.7 mg/dL (0.2-1.3); Total Protein 5.4 g/dL (6.3-8.2)
[2018-12-05] MEDS: IPRATROPIUM-ALBUTEROL 3 ML NEB INHALATION SCH ×4 (07:25→19:02)
[2018-12-05] MEDS: INSULIN ASPART (NovoLOG) 100 UNIT/ML VIAL SQ SCH ×4 (08:06→20:56)
[2018-12-05] MEDS: amLODIPine 5 MG TAB PO SCH (08:27)
[2018-12-05] MEDS: LOSARTAN 50 MG TAB PO SCH (08:27)
[2018-12-05] MEDS: ASPIRIN 325 MG TAB PO SCH (08:27)
[2018-12-05] MEDS: TAMSULOSIN 0.4 MG CAP.ER.24H PO SCH ×2 (08:27→19:50)
[2018-12-05] MEDS: AZITHROMYCIN 500 MG in SODIUM CHLORIDE 0.9% 250 ML IVPB SCH (09:26)
--- NOTE | 2018-12-05 11:02 | P.PN ---
Subjective Progress Note Date: 12/05/18 This is an 83-year-old male patient of Dr. Israel. Patient presented with complaints of increased shortness of breath. Patient reports his symptoms started approximately 1 week ago. Patient also reports that he has had increased sputum production with green sputum. Patient denies any fevers. Patient also reports he had increased peripheral edema. Patient does have a past medical history of coronary artery disease status post coronary artery bypass graft surgery twice. Patient recently underwent cardiac cath in May 2018 and DAPHNEY which revealed severe aortic stenosis severe aortic insufficiency. Patient reports that he was evaluated by our cardiothoracic team was seen at [facility] in which they referred him to undergo transcutaneous aortic valve replacement. Patient reports he has been doing the pre-op workup including dental work in which he has completed. Additional medical history includes congestive heart failure with an EF of 25%, degenerative arthritis, COPD, hypertension, bowel obstruction and myocardial infarction. EKG completed showing normal sinus rhythm. Left bundle branch block. X-ray completed showing bibasilar platelike atelectasis at the diaphragms. Moderate cardiomegaly. Troponins 1.280, 1.910. Started on heparin drip and cardiology services have been consulted. ENT elevated at 14,400. Patient started on IV Lasix 40 mg every 8 hours. Sputum culture ordered. Patient started on Zithromax and Rocephin for pneumonia. Pulmonary services have been consulted. At this time patient reports he does feel improved. Still having significant sputum production. Patient denies chest pain. Patient denies any nausea vomiting or diarrhea. Patient denies any urinary burning or frequency On 12/05/2018 patient's alert and oriented 3. Patient reports he feels significantly improved. Patient remains on IV Lasix 40 mg every 8 hours. Patient also remains on heparin drip per cardiology. This time patient denies chest pain or shortness breath. Patient denies nausea vomiting or diarrhea. Patient denies any urinary burning or frequency. Objective - Vital Signs Vital signs: Vital Signs Temp 97.4 F L 12/05/18 08:00 Pulse 80 12/05/18 08:00 Resp 18 12/05/18 08:00 BP 108/62 12/05/18 08:00 Pulse Ox 97 12/05/18 08:00 Intake & Output 12/04/18 12/05/18 12/05/18 18:59 06:59 18:59 Intake Total 1019.935 146.774 240 Output Total 870 1550 Balance 149.935 -1403.226 240 Weight 76.7 kg Intake: Intake, IV Titration 59.935 146.774 Amount Heparin Sod,Pork in 0.45% 59.935 146.774 NaCl 25,000 unit In 0.45 % NaCl 1 250ml.bag @ 12 UNITS/KG/HR 9.906 mls/hr IV .Q24H ALAN Rx#: [id number] Oral 960 240 Output: Urine 870 1550 Other: # Voids 1 1 - Exam Head normocephalic Neck supple Lungs diminished bilaterally Heart regular rate and rhythm S1-S2, no rub or gallop Abdomen is soft nontender nondistended positive bowel sounds no hepatosplenomegaly Extremities +1 bilateral lower extremity edema Neuro alert and orientated to 3 - Labs CBC & Chem 7: 12/05/18 05:44 12/05/18 05:44 Labs: Abnormal Lab Results - Last 24 Hours (Table) 12/04/18 12/04/18 12/04/18 Range/Units 10:50 14:16 16:51 RBC (4.30-5.90) m/uL Hgb (13.0-17.5) gm/dL Hct (39.0-53.0) % Plt Count (150-450) k/uL Lymphocytes # (1.0-4.8) k/uL APTT 38.5 H (22.0-30.0) sec Sodium (137-145) mmol/L Carbon Dioxide (22-30) mmol/L BUN (9-20) mg/dL Creatinine (0.66-1.25) mg/dL POC Glucose (mg/dL) 115 H (75-99) mg/dL Troponin I 1.360 H* (0.000-0.034) ng/mL Total Protein (6.3-8.2) g/dL Albumin (3.5-5.0) g/dL 12/04/18 12/04/18 12/05/18 Range/Units 20:56 21:28 05:44 RBC 3.98 L (4.30-5.90) m/uL Hgb 12.6 L (13.0-17.5) gm/dL Hct 38.5 L (39.0-53.0) % Plt Count 137 L (150-450) k/uL Lymphocytes # 0.6 L (1.0-4.8) k/uL APTT 53.1 H (22.0-30.0) sec Sodium (137-145) mmol/L Carbon Dioxide (22-30) mmol/L BUN (9-20) mg/dL Creatinine (0.66-1.25) mg/dL POC Glucose (mg/dL) 119 H (75-99) mg/dL Troponin I (0.000-0.034) ng/mL Total Protein (6.3-8.2) g/dL Albumin (3.5-5.0) g/dL 12/05/18 12/05/18 12/05/18 Range/Units 05:44 05:44 05:47 RBC (4.30-5.90) m/uL Hgb (13.0-17.5) gm/dL Hct (39.0-53.0) % Plt Count (150-450) k/uL Lymphocytes # (1.0-4.8) k/uL APTT 76.8 H (22.0-30.0) sec Sodium 136 L (137-145) mmol/L Carbon Dioxide 31 H (22-30) mmol/L BUN 38 H (9-20) mg/dL Creatinine 1.62 H (0.66-1.25) mg/dL POC Glucose (mg/dL) 108 H (75-99) mg/dL Troponin I (0.000-0.034) ng/mL Total Protein 5.4 L (6.3-8.2) g/dL Albumin 3.1 L (3.5-5.0) g/dL Microbiology - Last 24 Hours (Table) 12/04/18 17:00 Gram Stain - Preliminary Sputum Sputum Culture - Preliminary Assessment and Plan Assessment: 1. Acute hypoxic respiratory failure related to CHF exacerbation and pneumonia. Chest x-ray completed showing bibasilar platelike atelectasis at the diaphragm. Moderate cardiomegaly. Cardiology services have been consulted. Pulmonary service is consulted. Patient started on Rocephin and Zithromax IV antibiotics. Sputum culture ordered 2. Acute on chronic diastolic just of heart failure. Patient maintained on 40 mg IV Lasix BNP elevated at 14,400. Cardiology services have been consulted. 2-D echo completed showing an EF of 25-30%. 3. Acute non-ST elevated myocardial infarction. Troponin elevated 1.280 and 1.10 Patient maintained on heparin drip cardiology services are following 4. Severe aortic stenosis and aortic insufficiency. Patient is being followed at [facility] for workup for TAVR. 5. Acute on chronic renal disease. Creatinine 1.48 and 30. This does appear to be patient's baseline we'll continue to monitor 6. Severe underlining coronary artery disease with recent heart cath in May 2018 7. History of COPD 8. History of essential hypertension 9. History of hyperlipidemia 10. History of AAA repair 11. History of previous coronary artery bypass graft surgery DVT prophylaxis heparin drip. GI prophylaxis Protonix I performed an examination of the patient and discussed their management with the Nurse Practitioner. I have reviewed the Nurse Practitioner's notes and agree with the documented findings and plan of care
[2018-12-05 11:06] LABS: Glucose,Whole Blood 89 mg/dL (75-99)
--- NOTE | 2018-12-05 12:12 | P.PN ---
Subjective Progress Note Date: 12/05/18 Principal diagnosis: Acute hypoxic respiratory failure related to underlying decompensated heart failure This is an 83-year-old gentleman who sees Dr. HERBIE Neely in the office on regular basis with a past medical history significant for coronary artery disease and status post coronary artery bypass grafting twice, known severe aortic stenosis, known severe aortic insufficiency, advanced chronic obstructive pulmonary disease currently on oxygen at home, as well as multiple comorbid conditions, was admitted to the hospital with shortness of breath. The patient underwent a heart catheterization in May [address] HERBIE Neely and that revealed occluded left main and occluded right coronary artery with patent COTTER to LAD which opacify the LAD very well and also gives collateral to the right coronary artery. At the same time, he underwent transesophageal echocardiogram which revealed normal LV function with evidence off moderate to severe aortic stenosis and moderate to severe aortic insufficiency. The patient subsequently underwent a DAPHNEY to assess the aortic valve. The patient was found to have severe aortic valve stenosis with a valve area of 0.9 cm, moderate degree of aortic regurgitation, peak gradient of 40 across the aortic valve and there was moderate to severe plaque in the aorta At that point the patient was referred to undergo transcutaneous aortic valve replacement. He was seen by Dr. Quintanilla at that point I subsequently he was seen at [facility]. He was requested to have his teeth workup before the procedure and the patient is currently is doing that. This time, he stated that for the last few days, he has been more short of breath and beside that he has been experiencing cough productive of colored sputum. No fever and no chills. No symptoms of chest pain or chest discomfort. He did develop severe bilateral lower extremities edema. He underwent a chest x-ray and that revealed evidence of congestive heart failure with possible p neumonia. The BNP was checked and came in to be at 15,000. The creatinine is slightly abnormal but it seems to be his baseline from before. Beside that the troponin came in to be elevated at 12.9. The EKG showed sinus rhythm with sinus tachycardia and LBBB. In terms of his COPD, the patient is known to have COPD with a baseline FEV1 of 39% of predicted. His room air pulse ox typically is around 95%. He is on a combination of Breo Ellipta and Incrus one inhalation a day and he uses albut michela rescue inhaler on an as-needed basis. During the cold weather, the patient typically gets more short of breath and bronchospastic and wheezy. Nevertheless, he has not had any significant COPD exacerbations. The patient was last seen in our office and he was still being investigated for a TAVR procedure. He was noted to have some increased edema and fluid overload and for that reason he was started on Lasix 20 mg by mouth daily. On 12/05/2018 patient was seen in follow-up in selective care unit. He is awake and alert, in no acute distress, his weight is down by 5.8 kg since admission, he is diuresing, he denies any chest pain, his breathing is improving. Lung sounds reveal bibasilar crackles, he is on IV Lasix at 40 mg every 8 hours. His lab work has been reviewed and showed white blood cell count of 7.0, hemoglobin is 12.6, sodium is 136, potassium is 4.2, chloride is 101, CO2 is 31, BUN is 38 and creatinine is 1.62. Objective - Vital Signs Vital signs: Vital Signs Temp 97.4 F L 12/05/18 08:00 Pulse 78 12/05/18 11:44 Resp 16 12/05/18 11:44 BP 108/62 12/05/18 08:00 Pulse Ox 97 12/05/18 08:00 Intake & Output 12/04/18 12/05/18 12/05/18 18:59 06:59 18:59 Intake Total 1019.935 146.774 240 Output Total 870 1550 Balance 149.935 -1403.226 240 Weight 76.7 kg Intake: Intake, IV Titration 59.935 146.774 Amount Heparin Sod,Pork in 0.45% 59.935 146.774 NaCl 25,000 unit In 0.45 % NaCl 1 250ml.bag @ 12 UNITS/KG/HR 9.906 mls/hr IV .Q24H ALAN Rx#: [id number] Oral 960 240 Output: Urine 870 1550 Other: # Voids 1 1 - Exam GENERAL EXAM: Alert, pleasant, 83-year-old white male comfortable in no apparent distress. HEAD: Normocephalic/atraumatic. EYES: Normal reaction of pupils, equal size. Conjunctiva pink, sclera white. NOSE: Clear with pink turbinates. THROAT: No erythema or exudates. NECK: No masses, no JVD, no thyroid enlargement, no adenopathy. CHEST: No chest wall deformity. Symmetrical expansion. LUNGS: Equal air entry with basilar crackles CVS: Regular rate and rhythm, normal S1 and S2, no gallops, no murmurs, no rubs ABDOMEN: Soft, nontender. No hepatosplenomegaly, normal bowel sounds, no guarding or rigidity. EXTREMITIES: No clubbing, no edema, no cyanosis, 2+ pulses and upper and lower extremities. MUSCULOSKELETAL: Muscle strength and tone normal. SPINE: No scoliosis or deformity SKIN: No rashes CENTRAL NERVOUS SYSTEM: Alert and oriented -3. No focal deficits, tone is normal in all 4 extremities. PSYCHIATRIC: Alert and oriented -3. Appropriate affect. Intact judgment and insight. - Labs CBC & Chem 7: 12/05/18 05:44 12/05/18 05:44 Labs: Abnormal Lab Results - Last 24 Hours (Table) 12/04/18 12/04/18 12/04/18 Range/Units 14:16 16:51 20:56 RBC (4.30-5.90) m/uL Hgb (13.0-17.5) gm/dL Hct (39.0-53.0) % Plt Count (150-450) k/uL Lymphocytes # (1.0-4.8) k/uL APTT 38.5 H (22.0-30.0) sec Sodium (137-145) mmol/L Carbon Dioxide (22-30) mmol/L BUN (9-20) mg/dL Creatinine (0.66-1.25) mg/dL POC Glucose (mg/dL) 115 H 119 H (75-99) mg/dL Total Protein (6.3-8.2) g/dL Albumin (3.5-5.0) g/dL 12/04/18 12/05/18 12/05/18 Range/Units 21:28 05:44 05:44 RBC 3.98 L (4.30-5.90) m/uL Hgb 12.6 L (13.0-17.5) gm/dL Hct 38.5 L (39.0-53.0) % Plt Count 137 L (150-450) k/uL Lymphocytes # 0.6 L (1.0-4.8) k/uL APTT 53.1 H (22.0-30.0) sec Sodium 136 L (137-145) mmol/L Carbon Dioxide 31 H (22-30) mmol/L BUN 38 H (9-20) mg/dL Creatinine 1.62 H (0.66-1.25) mg/dL POC Glucose (mg/dL) (75-99) mg/dL Total Protein 5.4 L (6.3-8.2) g/dL Albumin 3.1 L (3.5-5.0) g/dL 12/05/18 12/05/18 Range/Units 05:44 05:47 RBC (4.30-5.90) m/uL Hgb (13.0-17.5) gm/dL Hct (39.0-53.0) % Plt Count (150-450) k/uL Lymphocytes # (1.0-4.8) k/uL APTT 76.8 H (22.0-30.0) sec Sodium (137-145) mmol/L Carbon Dioxide (22-30) mmol/L BUN (9-20) mg/dL Creatinine (0.66-1.25) mg/dL POC Glucose (mg/dL) 108 H (75-99) mg/dL Total Protein (6.3-8.2) g/dL Albumin (3.5-5.0) g/dL Microbiology - Last 24 Hours (Table) 12/04/18 17:00 Gram Stain - Preliminary Sputum Sputum Culture - Preliminary Assessment and Plan Plan: 1 acute hypoxic respiratory failure essentially seconds underlying decompensated heart failure. The patient is known to have valvular heart disease with severe aortic stenosis and a impaired LV function. Consider underlying systolic heart failure. Pneumonia is doubtful. 2 coronary artery disease with an acute and STEMI with a troponin max of 1.2 and the patient is currently on IV heparin and patient's free of any chest pain 3 COPD severe with an FEV1 of 39% of predicted 4 shortness of breath, chronic with acute decompensation secondary to above 5 coronary artery disease with previous carotid bypass surgery 6 severe aortic stenosis with a valve area of 0.9 cm and the patient is being considered for TAVR through [facility] 7 acute kidney injury with a creatinine of 1.4 8 hypertension 9 hyperlipidemia 10 abdominal aortic and resumed, the. 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 Continue with nebulized bronchodilators. Follow-up blood work, electrolytes and renal profile tomorrow. Will await further recommendations from cardiology. We'll continue to follow I performed a history & physical examination of the patient and discussed their management with my nurse practitioner, Karolyn Singleton. I reviewed the nurse practitioner's note and agree with the documented findings and plan of care. Lung sounds are positive for basilar crackles. The findings and the impression was discussed with the patient. I attest to the documentation by the nurse practitioner. Time with Patient: Less than 30
[2018-12-05] MEDS: SPIRONOLACTONE 25 MG TAB PO SCH (15:42)
--- NOTE | 2018-12-05 16:21 | PN ---
PROGRESS NOTE This patient was admitted with symptoms of shortness of breath. He is feeling better. He is lying comfortably. Denies any orthopnea or PND. Patient's clinical panels and medications are reviewed. The vital signs are reviewed. Blood pressure is 110/61 mmHg. Second heart sound is soft. There is a grade 3/6 ejection systolic murmur noted. This patient has been diagnosed to have severe aortic stenosis and he was supposed to undergo TAVR at [facility]. He is now scheduled next week at [facility]. Patient's predominant symptom appears to be congestive cardiac failure. His LV function has deteriorated since last May. Ejection fraction is now 25% to 30%. The patient has underlying left bundle branch block pattern. Patient does not have any clinical picture suggestive of pneumonia. We will do a procalcitonin level. Continue the current medications. If procalcitonin level is normal, we can discontinue the IV antibiotics and continue diuretics. If patient remains stable, he can undergo the TAVR next week. MMODL / IJN: [id number] /
[2018-12-05 17:09] LABS: Glucose,Whole Blood 102 mg/dL (75-99)
[2018-12-05 20:55] LABS: Glucose,Whole Blood 115 mg/dL (75-99)
[2018-12-05] MEDS: LATANOPROST 0.005% OPHTH DROPS 2.5 ML BTL BOTH EYES SCH (20:56)
[2018-12-05] MEDS: KETOTIFEN 0.025% OPHTH DROPS 5 ML BTL BOTH EYES SCH (20:56)
[2018-12-06] MEDS: HEPARIN SOD,PORK IN 0.45% NACL 25,000 UNIT in 0.45% NACL 1 250ML.BAG IV SCH (04:23)
[2018-12-06 06:13] LABS: Glucose,Whole Blood 89 mg/dL (75-99)
[2018-12-06] MEDS: PANTOPRAZOLE 40 MG TABLET PO SCH (06:15)
[2018-12-06] MEDS: INSULIN ASPART (NovoLOG) 100 UNIT/ML VIAL SQ SCH ×4 (06:15→21:14)
[2018-12-06] MEDS: FUROSEMIDE 10 MG/ML 4 ML VIAL IV SCH (08:05)
[2018-12-06] MEDS: ASPIRIN 81 MG PO SCH (08:05)
[2018-12-06] MEDS: LOSARTAN 50 MG TAB PO SCH (08:05)
[2018-12-06] MEDS: SPIRONOLACTONE 25 MG TAB PO SCH (08:05)
[2018-12-06] MEDS: amLODIPine 5 MG TAB PO SCH (08:06)
[2018-12-06] MEDS: AZITHROMYCIN 500 MG TAB PO SCH (08:06)
[2018-12-06] MEDS: TAMSULOSIN 0.4 MG CAP.ER.24H PO SCH ×2 (08:06→19:57)
[2018-12-06] MEDS: METOPROLOL SUCCINATE (ER) 50 MG TAB.ER.24H PO SCH (08:06)
[2018-12-06 08:17] LABS: Basophils % (A) 0 %; Eosinophils # (A) 0.4 k/uL (0-0.7); Eosinophils % (A) 5 %; HCT 41.4 % (39.0-53.0); HGB 13.4 gm/dL (13.0-17.5); Lymphocytes # (A) 0.6 k/uL (1.0-4.8); Lymphocytes % (A) 8 %; MCHC 32.4 g/dL (31.0-37.0); MCV 98.6 fL (80.0-100.0); Mean Platelet Volume 6.8; Monocytes # (A) 0.3 k/uL (0-1.0); Monocytes % (A) 4 %; Neutrophils # (A) 5.3 k/uL (1.3-7.7); Neutrophils % (A) 81 %; Platelet Count 162 k/uL (150-450); RDW 14.4 % (11.5-15.5); WBC 6.6 k/uL (3.8-10.6)
[2018-12-06 08:29] LABS: Albumin 3.3 g/dL (3.5-5.0); Calcium 8.7 mg/dL (8.4-10.2); Potassium 4.2 mmol/L (3.5-5.1); Total Bilirubin 0.8 mg/dL (0.2-1.3); Total Protein 5.7 g/dL (6.3-8.2)
[2018-12-06] MEDS: IPRATROPIUM-ALBUTEROL 3 ML NEB INHALATION SCH ×4 (08:54→20:17)
--- NOTE | 2018-12-06 11:20 | XR ---
EXAMINATION TYPE: XR chest 2V DATE OF EXAM: 12/06/2018 COMPARISON: 12/04/2018 INDICATION: CHF TECHNIQUE: Frontal and lateral views of the chest are obtained. FINDINGS: The heart size is normal. The pulmonary vasculature is normal. Some linear opacities at the right lung base present previously may be some atelectasis. Minimal silh ouetting the lateral left diaphragm may be present. Subsegmental atelectasis should be considered. Ov ert congestive heart failure is not identified. Posterior infiltrate is present on the lateral proje ction can be related atelectasis IMPRESSION: 1. Bibasilar atelectasis.
[2018-12-06 11:46] LABS: Glucose,Whole Blood 77 mg/dL (75-99)
--- NOTE | 2018-12-06 11:52 | P.PN ---
Subjective Progress Note Date: 12/06/18 This is an 83-year-old male patient of Dr. Israel. Patient presented with complaints of increased shortness of breath. Patient reports his symptoms started approximately 1 week ago. Patient also reports that he has had increased sputum production with green sputum. Patient denies any fevers. Patient also reports he had increased peripheral edema. Patient does have a past medical history of coronary artery disease status post coronary artery bypass graft surgery twice. Patient recently underwent cardiac cath in May 2018 and DAPHNEY which revealed severe aortic stenosis severe aortic insufficiency. Patient reports that he was evaluated by our cardiothoracic team was seen at [facility] in which they referred him to undergo transcutaneous aortic valve replacement. Patient reports he has been doing the pre-op workup including dental work in which he has completed. Additional medical history includes congestive heart failure with an EF of 25%, degenerative arthritis, COPD, hypertension, bowel obstruction and myocardial infarction. EKG completed showing normal sinus rhythm. Left bundle branch block. X-ray completed showing bibasilar platelike atelectasis at the diaphragms. Moderate cardiomegaly. Troponins 1.280, 1.910. Started on heparin drip and cardiology services have been consulted. ENT elevated at 14,400. Patient started on IV Lasix 40 mg every 8 hours. Sputum culture ordered. Patient started on Zithromax and Rocephin for pneumonia. Pulmonary services have been consulted. At this time patient reports he does feel improved. Still having significant sputum production. Patient denies chest pain. Patient denies any nausea vomiting or diarrhea. Patient denies any urinary burning or frequency On 12/05/2018 patient's alert and oriented 3. Patient reports he feels significantly improved. Patient remains on IV Lasix 40 mg every 8 hours. Patient also remains on heparin drip per cardiology. This time patient denies chest pain or shortness breath. Patient denies nausea vomiting or diarrhea. Patient denies any urinary burning or frequency. On 12/06/2018 patient's alert and oriented 3 patient feels improved with shortness of breath. Patient remains on IV Lasix and IV heparin at this time. Creatinine trending down to 1.6. At this time patient denies chest pain or shortness breath. Patient denies nausea vomiting or diarrhea. Patient denies any urinary burning or frequency Objective - Vital Signs Vital signs: Vital Signs Temp 97.2 F L 12/06/18 08:00 Pulse 76 12/06/18 09:09 Resp 18 12/06/18 08:00 BP 104/53 12/06/18 08:00 Pulse Ox 96 12/06/18 08:00 Intake & Output 12/05/18 12/06/18 12/06/18 18:59 06:59 18:59 Intake Total 1052 179.959 240 Output Total 400 1750 200 Balance 652 -1570.041 40 Weight 78.3 kg Intake: Intake, IV Titration 350 179.959 Amount Azithromycin 500 mg In 250 Sodium Chloride 0.9% 250 ml @ 250 mls/hr IVPB DAILY ALAN Rx#:[id number] Heparin Sod,Pork in 0.45% 179.959 NaCl 25,000 unit In 0.45 % NaCl 1 250ml.bag @ 12 UNITS/KG/HR 9.906 mls/hr IV .Q24H ALAN Rx#: [id number] 1 gm In 100 Sodium Chloride 0.9% 50 ml @ 100 mls/hr IVPB Q24HR ALAN Rx#:[id number] Oral 702 240 Output: Urine 400 1750 200 Other: Voiding Method Urinal Urinal # Voids 1 1 - Exam Head normocephalic Neck supple Lungs diminished bilaterally Heart regular rate and rhythm S1-S2, no rub or gallop Abdomen is soft nontender nondistended positive bowel sounds no hepatosplenomegaly Extremities +1 bilateral lower extremity edema Neuro alert and orientated to 3 - Labs CBC & Chem 7: 12/06/18 07:45 12/06/18 07:45 Labs: Abnormal Lab Results - Last 24 Hours (Table) 12/05/18 12/05/18 12/05/18 Range/Units 12:35 12:35 17:08 RBC (4.30-5.90) m/uL Lymphocytes # (1.0-4.8) k/uL APTT 48.1 H (22.0-30.0) sec Carbon Dioxide (22-30) mmol/L BUN (9-20) mg/dL Creatinine (0.66-1.25) mg/dL Glucose (74-99) mg/dL POC Glucose (mg/dL) 102 H (75-99) mg/dL Total Protein (6.3-8.2) g/dL Albumin (3.5-5.0) g/dL Procalcitonin 0.98 H (0.02-0.09) ng/mL 12/05/18 12/06/18 12/06/18 Range/Units 20:54 07:45 07:45 RBC 4.20 L (4.30-5.90) m/uL Lymphocytes # 0.6 L (1.0-4.8) k/uL APTT (22.0-30.0) sec Carbon Dioxide 32 H (22-30) mmol/L BUN 39 H (9-20) mg/dL Creatinine 1.51 H (0.66-1.25) mg/dL Glucose 140 H (74-99) mg/dL POC Glucose (mg/dL) 115 H (75-99) mg/dL Total Protein 5.7 L (6.3-8.2) g/dL Albumin 3.3 L (3.5-5.0) g/dL Procalcitonin (0.02-0.09) ng/mL 12/06/18 Range/Units 07:45 RBC (4.30-5.90) m/uL Lymphocytes # (1.0-4.8) k/uL APTT 56.6 H (22.0-30.0) sec Carbon Dioxide (22-30) mmol/L BUN (9-20) mg/dL Creatinine (0.66-1.25) mg/dL Glucose (74-99) mg/dL POC Glucose (mg/dL) (75-99) mg/dL Total Protein (6.3-8.2) g/dL Albumin (3.5-5.0) g/dL Procalcitonin (0.02-0.09) ng/mL Microbiology - Last 24 Hours (Table) 12/04/18 17:00 Gram Stain - Preliminary Sputum Sputum Culture - Preliminary Assessment and Plan Assessment: 1. Acute hypoxic respiratory failure related to CHF exacerbation and possible pneumonia. Chest x-ray completed showing bibasilar platelike atelectasis at the diaphragm. Moderate cardiomegaly. Pulmonary services following. Patient started on Rocephin and Zithromax IV antibiotics. Sputum culture ordered. Repeat chest x-ray showing bibasilar atelectasis. 2. Acute on chronic diastolic just of heart failure. Patient maintained on 40 mg IV Lasix BNP elevated at 14,400. Cardiology services have been consulted. 2-D echo completed showing an EF of 25-30%. 3. Acute non-ST elevated myocardial infarction. Troponin elevated 1.280 and 1.10 Patient maintained on heparin drip cardiology services are following 4. Severe aortic stenosis and aortic insufficiency. Patient is being followed at [facility] for workup for TAVR. Per cardiology patient's LV function has deteriorated since last May prolactin level has been ordered if patient remains stable ischemia undergo TAVR next week per cardiology 5. Acute on chronic renal disease. Creatinine 1.48 and 30. This does appear to be patient's baseline we'll continue to monitor 6. Severe underlining coronary artery disease with recent heart cath in May 2018 7. History of COPD 8. History of essential hypertension 9. History of hyperlipidemia 10. History of AAA repair 11. History of previous coronary artery bypass graft surgery DVT prophylaxis heparin drip. GI prophylaxis Protonix I performed an examination of the patient and discussed their management with the Nurse Practitioner. I have reviewed the Nurse Practitioner's notes and agree with the documented findings and plan of care
--- NOTE | 2018-12-06 13:10 | P.PN ---
Subjective Progress Note Date: 12/06/18 Principal diagnosis: Acute hypoxic respiratory failure related to underlying decompensated heart failure This is an 83-year-old gentleman who sees Dr. HERBIE Neely in the office on regular basis with a past medical history significant for coronary artery disease and status post coronary artery bypass grafting twice, known severe aortic stenosis, known severe aortic insufficiency, advanced chronic obstructive pulmonary disease currently on oxygen at home, as well as multiple comorbid conditions, was admitted to the hospital with shortness of breath. The patient underwent a heart catheterization in May [address] HERBIE Neely and that revealed occluded left main and occluded right coronary artery with patent COTTER to LAD which opacify the LAD very well and also gives collateral to the right coronary artery. At the same time, he underwent transesophageal echocardiogram which revealed normal LV function with evidence off moderate to severe aortic stenosis and moderate to severe aortic insufficiency. The patient subsequently underwent a DAPHNEY to assess the aortic valve. The patient was found to have severe aortic valve stenosis with a valve area of 0.9 cm, moderate degree of aortic regurgitation, peak gradient of 40 across the aortic valve and there was moderate to severe plaque in the aorta At that point the patient was referred to undergo transcutaneous aortic valve replacement. He was seen by Dr. Quintanilla at that point I subsequently he was seen at [facility]. He was requested to have his teeth workup before the procedure and the patient is currently is doing that. This time, he stated that for the last few days, he has been more short of breath and beside that he has been experiencing cough productive of colored sputum. No fever and no chills. No symptoms of chest pain or chest discomfort. He did develop severe bilateral lower extremities edema. He underwent a chest x-ray and that revealed evidence of congestive heart failure with possible p neumonia. The BNP was checked and came in to be at 15,000. The creatinine is slightly abnormal but it seems to be his baseline from before. Beside that the troponin came in to be elevated at 12.9. The EKG showed sinus rhythm with sinus tachycardia and LBBB. In terms of his COPD, the patient is known to have COPD with a baseline FEV1 of 39% of predicted. His room air pulse ox typically is around 95%. He is on a combination of Breo Ellipta and Incrus one inhalation a day and he uses albut michela rescue inhaler on an as-needed basis. During the cold weather, the patient typically gets more short of breath and bronchospastic and wheezy. Nevertheless, he has not had any significant COPD exacerbations. The patient was last seen in our office and he was still being investigated for a TAVR procedure. He was noted to have some increased edema and fluid overload and for that reason he was started on Lasix 20 mg by mouth daily. On 12/05/2018 patient was seen in follow-up in selective care unit. He is awake and alert, in no acute distress, his weight is down by 5.8 kg since admission, he is diuresing, he denies any chest pain, his breathing is improving. Lung sounds reveal bibasilar crackles, he is on IV Lasix at 40 mg every 8 hours. His lab work has been reviewed and showed white blood cell count of 7.0, hemoglobin is 12.6, sodium is 136, potassium is 4.2, chloride is 101, CO2 is 31, BUN is 38 and creatinine is 1.62. On 12/06/2018 patient seen in follow-up on selective care unit. He is awake and alert, he states his breathing is improving, still has some coarse basilar rales, complaints of chest pain, still quite short of breath with any exertion and ambulation to the bathroom. Sputum culture is pending, preliminary Gram stain showed no organism, no fever or chills, patient is on antibiotic coverage for possibility of pneumonia. He is maintaining negative fluid balance, Anika on Lasix at 40 mg every 12 hours, today's labs have been reviewed, showing white blood cell count is 6.6, hemoglobin of 13.4, sodium is 140, potassium is 4.2, chloride is 103, CO2 is 32, BUN is 39, creatinine is 1.51 Objective - Vital Signs Vital signs: Vital Signs Temp 97.4 F L 12/06/18 12:00 Pulse 61 12/06/18 12:00 Resp 18 12/06/18 12:00 BP 115/56 12/06/18 12:00 Pulse Ox 97 12/06/18 12:00 Intake & Output 12/05/18 12/06/18 12/06/18 18:59 06:59 18:59 Intake Total 1052 179.959 480 Output Total 400 1750 1050 Balance 652 -1570.041 -570 Weight 78.3 kg Intake: Intake, IV Titration 350 179.959 Amount Azithromycin 500 mg In 250 Sodium Chloride 0.9% 250 ml @ 250 mls/hr IVPB DAILY ALAN Rx#:[id number] Heparin Sod,Pork in 0.45% 179.959 NaCl 25,000 unit In 0.45 % NaCl 1 250ml.bag @ 12 UNITS/KG/HR 9.906 mls/hr IV .Q24H ALAN Rx#: [id number] cefTRIAXone 1 gm In 100 Sodium Chloride 0.9% 50 ml @ 100 mls/hr IVPB Q24HR ALAN Rx#:[id number] Oral 702 480 Output: Urine 400 1750 1050 Other: Voiding Method Urinal Urinal # Voids 1 2 - Exam GENERAL EXAM: Alert, pleasant, 83-year-old white male comfortable in no apparent distress. HEAD: Normocephalic/atraumatic. EYES: Normal reaction of pupils, equal size. Conjunctiva pink, sclera white. NOSE: Clear with pink turbinates. THROAT: No erythema or exudates. NECK: No masses, no JVD, no thyroid enlargement, no adenopathy. CHEST: No chest wall deformity. Symmetrical expansion. LUNGS: Equal air entry with basilar crackles CVS: Regular rate and rhythm, normal S1 and S2, no gallops, no murmurs, no rubs ABDOMEN: Soft, nontender. No hepatosplenomegaly, normal bowel sounds, no guarding or rigidity. EXTREMITIES: No clubbing, no edema, no cyanosis, 2+ pulses and upper and lower extremities. MUSCULOSKELETAL: Muscle strength and tone normal. SPINE: No scoliosis or deformity SKIN: No rashes CENTRAL NERVOUS SYSTEM: Alert and oriented -3. No focal deficits, tone is normal in all 4 extremities. PSYCHIATRIC: Alert and oriented -3. Appropriate affect. Intact judgment and insight. - Labs CBC & Chem 7: 12/06/18 07:45 12/06/18 07:45 Labs: Abnormal Lab Results - Last 24 Hours (Table) 12/05/18 12/05/18 12/05/18 Range/Units 12:35 17:08 20:54 RBC (4.30-5.90) m/uL Lymphocytes # (1.0-4.8) k/uL APTT (22.0-30.0) sec Carbon Dioxide (22-30) mmol/L BUN (9-20) mg/dL Creatinine (0.66-1.25) mg/dL Glucose (74-99) mg/dL POC Glucose (mg/dL) 102 H 115 H (75-99) mg/dL Total Protein (6.3-8.2) g/dL Albumin (3.5-5.0) g/dL Procalcitonin 0.98 H (0.02-0.09) ng/mL 12/06/18 12/06/18 12/06/18 Range/Units 07:45 07:45 07:45 RBC 4.20 L (4.30-5.90) m/uL Lymphocytes # 0.6 L (1.0-4.8) k/uL APTT 56.6 H (22.0-30.0) sec Carbon Dioxide 32 H (22-30) mmol/L BUN 39 H (9-20) mg/dL Creatinine 1.51 H (0.66-1.25) mg/dL Glucose 140 H (74-99) mg/dL POC Glucose (mg/dL) (75-99) mg/dL Total Protein 5.7 L (6.3-8.2) g/dL Albumin 3.3 L (3.5-5.0) g/dL Procalcitonin (0.02-0.09) ng/mL Microbiology - Last 24 Hours (Table) 12/04/18 17:00 Gram Stain - Preliminary Sputum Sputum Culture - Preliminary Assessment and Plan Plan: 1 acute hypoxic respiratory failure essentially seconds underlying decompensated heart failure. The patient is known to have valvular heart disease with severe aortic stenosis and a impaired LV function. Consider underlying systolic heart failure. Pneumonia is doubtful. 2 coronary artery disease with an acute and STEMI with a troponin max of 1.2 and the patient is currently on IV heparin and patient's free of any chest pain 3 COPD severe with an FEV1 of 39% of predicted 4 shortness of breath, chronic with acute decompensation secondary to above 5 coronary artery disease with previous carotid bypass surgery 6 severe aortic stenosis with a valve area of 0.9 cm and the patient is being considered for TAVR through [facility] 7 acute kidney injury with a creatinine of 1.4 8 hypertension 9 hyperlipidemia 10 abdominal aortic and resumed, the. 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 We'll continue to follow. I performed a history & physical examination of the patient and discussed their management with my nurse practitioner, Karolyn Singleton. I reviewed the nurse practitioner's note and agree with the documented findings and plan of care. Lung sounds are positive for basilar crackles. The findings and the impression was discussed with the patient. I attest to the documentation by the nurse practitioner. Time with Patient: Less than 30
[2018-12-06 16:49] LABS: Glucose,Whole Blood 101 mg/dL (75-99)
--- NOTE | 2018-12-06 19:02 | PN ---
PROGRESS NOTE This patient was admitted with congestive cardiac failure. He is feeling better. He is afebrile. Denies any significant cough with expectoration. The chest x-ray shows improvement in the congestive cardiac failure. Patient's blood pressure is 115/56 mmHg. Heart rate is 80 per minute. First and second heart sounds are normal. Lungs reveal a few rales at the bases. Patient's creatinine is 1.51. IMPRESSION: The patient's congestive heart failure is improving. The patient possibly had acute tracheobronchitis with underlying COPD. We will discontinue the IV Lasix, start him on p.o. Lasix and ambulate the patient. MMODL / IJN: [id number] /
[2018-12-06] MEDS: LATANOPROST 0.005% OPHTH DROPS 2.5 ML BTL BOTH EYES SCH (19:57)
[2018-12-06] MEDS: KETOTIFEN 0.025% OPHTH DROPS 5 ML BTL BOTH EYES SCH (19:57)
[2018-12-06 21:13] LABS: Glucose,Whole Blood 133 mg/dL (75-99)
[2018-12-07] MEDS: PANTOPRAZOLE 40 MG TABLET PO SCH (05:41)
[2018-12-07 06:06] LABS: Glucose,Whole Blood 90 mg/dL (75-99)
[2018-12-07] MEDS: INSULIN ASPART (NovoLOG) 100 UNIT/ML VIAL SQ SCH ×2 (06:06→11:42)
[2018-12-07 07:24] LABS: Basophils % (A) 0 %; Eosinophils # (A) 0.4 k/uL (0-0.7); Eosinophils % (A) 8 %; HCT 38.9 % (39.0-53.0); HGB 12.3 gm/dL (13.0-17.5); Lymphocytes # (A) 0.4 k/uL (1.0-4.8); Lymphocytes % (A) 9 %; MCH 31.2 pg (25.0-35.0); MCHC 31.6 g/dL (31.0-37.0); MCV 98.6 fL (80.0-100.0); Mean Platelet Volume 6.9; Monocytes # (A) 0.3 k/uL (0-1.0); Monocytes % (A) 7 %; Neutrophils # (A) 3.6 k/uL (1.3-7.7); Neutrophils % (A) 75 %; Platelet Count 159 k/uL (150-450); RBC 3.95 m/uL (4.30-5.90); RDW 14.3 % (11.5-15.5); WBC 4.8 k/uL (3.8-10.6)
[2018-12-07 07:37] LABS: Albumin 2.9 g/dL (3.5-5.0); Calcium 8.6 mg/dL (8.4-10.2); Magnesium 2.3 mg/dL (1.6-2.3); Potassium 4.2 mmol/L (3.5-5.1); Total Bilirubin 0.9 mg/dL (0.2-1.3); Total Protein 5.2 g/dL (6.3-8.2)
[2018-12-07] MEDS: SPIRONOLACTONE 25 MG TAB PO SCH (08:14)
[2018-12-07] MEDS: TAMSULOSIN 0.4 MG CAP.ER.24H PO SCH (08:15)
[2018-12-07] MEDS: METOPROLOL SUCCINATE (ER) 50 MG TAB.ER.24H PO SCH (08:15)
[2018-12-07] MEDS: LOSARTAN 50 MG TAB PO SCH (08:15)
[2018-12-07] MEDS: ASPIRIN 81 MG PO SCH (08:15)
[2018-12-07] MEDS: AZITHROMYCIN 500 MG TAB PO SCH (08:15)
[2018-12-07] MEDS: IPRATROPIUM-ALBUTEROL 3 ML NEB INHALATION SCH ×3 (08:23→16:12)
--- NOTE | 2018-12-07 10:23 | P.PN ---
Subjective Progress Note Date: 12/07/18 This is an 83-year-old male patient of Dr. Israel. Patient presented with complaints of increased shortness of breath. Patient reports his symptoms started approximately 1 week ago. Patient also reports that he has had increased sputum production with green sputum. Patient denies any fevers. Patient also reports he had increased peripheral edema. Patient does have a past medical history of coronary artery disease status post coronary artery bypass graft surgery twice. Patient recently underwent cardiac cath in May 2018 and DAPHNEY which revealed severe aortic stenosis severe aortic insufficiency. Patient reports that he was evaluated by our cardiothoracic team was seen at [facility] in which they referred him to undergo transcutaneous aortic valve replacement. Patient reports he has been doing the pre-op workup including dental work in which he has completed. Additional medical history includes congestive heart failure with an EF of 25%, degenerative arthritis, COPD, hypertension, bowel obstruction and myocardial infarction. EKG completed showing normal sinus rhythm. Left bundle branch block. X-ray completed showing bibasilar platelike atelectasis at the diaphragms. Moderate cardiomegaly. Troponins 1.280, 1.910. Started on heparin drip and cardiology services have been consulted. ENT elevated at 14,400. Patient started on IV Lasix 40 mg every 8 hours. Sputum culture ordered. Patient started on Zithromax and Rocephin for pneumonia. Pulmonary services have been consulted. At this time patient reports he does feel improved. Still having significant sputum production. Patient denies chest pain. Patient denies any nausea vomiting or diarrhea. Patient denies any urinary burning or frequency On 12/05/2018 patient's alert and oriented 3. Patient reports he feels significantly improved. Patient remains on IV Lasix 40 mg every 8 hours. Patient also remains on heparin drip per cardiology. This time patient denies chest pain or shortness breath. Patient denies nausea vomiting or diarrhea. Patient denies any urinary burning or frequency. On 12/06/2018 patient's alert and oriented 3 patient feels improved with shortness of breath. Patient remains on IV Lasix and IV heparin at this time. Creatinine trending down to 1.6. At this time patient denies chest pain or shortness breath. Patient denies nausea vomiting or diarrhea. Patient denies any urinary burning or frequency On 12/07/2018 patient's alert and oriented 3. Patient remains feeling improved. IV Lasix has been DC'd. IV heparin also DC'd per cardiology. Creatinine 1.40. Awaiting cardiology recommendation. At this time patient denies chest pain or shortness of breath. Patient denies nausea vomiting or diarrhea. Patient denies any urinary burning or frequency. Patient remains on Rocephin and Zithromax per pulmonary Objective - Vital Signs Vital signs: Vital Signs Temp 98.0 F 12/07/18 08:00 Pulse 73 12/07/18 08:35 Resp 16 12/07/18 08:35 BP 117/57 12/07/18 08:00 Pulse Ox 96 12/07/18 08:24 Intake & Output 12/06/18 12/07/18 12/07/18 18:59 06:59 18:59 Intake Total 480 300 240 Output Total 1300 200 400 Balance -820 100 -160 Weight 73.6 kg Intake: Oral 480 300 240 Output: Urine 1300 200 400 Other: Voiding Method Urinal Urinal Urinal # Voids 1 1 - Exam Head normocephalic Neck supple Lungs diminished bilaterally Heart regular rate and rhythm S1-S2, no rub or gallop Abdomen is soft nontender nondistended positive bowel sounds no hepatosplenomegaly Extremities +1 bilateral lower extremity edema Neuro alert and orientated to 3 - Labs CBC & Chem 7: 12/07/18 06:54 12/07/18 06:54 Labs: Abnormal Lab Results - Last 24 Hours (Table) 12/06/18 12/06/18 12/07/18 Range/Units 16:48 21:02 06:54 RBC 3.95 L (4.30-5.90) m/uL Hgb 12.3 L (13.0-17.5) gm/dL Hct 38.9 L (39.0-53.0) % Lymphocytes # 0.4 L (1.0-4.8) k/uL Carbon Dioxide (22-30) mmol/L BUN (9-20) mg/dL Creatinine (0.66-1.25) mg/dL POC Glucose (mg/dL) 101 H 133 H (75-99) mg/dL Total Protein (6.3-8.2) g/dL Albumin (3.5-5.0) g/dL 12/07/18 Range/Units 06:54 RBC (4.30-5.90) m/uL Hgb (13.0-17.5) gm/dL Hct (39.0-53.0) % Lymphocytes # (1.0-4.8) k/uL Carbon Dioxide 32 H (22-30) mmol/L BUN 38 H (9-20) mg/dL Creatinine 1.40 H (0.66-1.25) mg/dL POC Glucose (mg/dL) (75-99) mg/dL Total Protein 5.2 L (6.3-8.2) g/dL Albumin 2.9 L (3.5-5.0) g/dL Microbiology - Last 24 Hours (Table) 12/04/18 17:00 Gram Stain - Final Sputum Sputum Culture - Final Melida albicans Assessment and Plan Assessment: 1. Acute hypoxic respiratory failure related to CHF exacerbation and possible pneumonia. Chest x-ray completed showing bibasilar platelike atelectasis at the diaphragm. Moderate cardiomegaly. Pulmonary services following. Patient started on Rocephin and Zithromax IV antibiotics. Sputum culture ordered. Repeat chest x-ray showing bibasilar atelectasis. 2. Acute on chronic diastolic just of heart failure. Patient maintained on 40 mg IV Lasix BNP elevated at 14,400. Cardiology services have been consulted. 2-D echo completed showing an EF of 25-30%. IV Lasix has been DC'd per cardiology. She has been switched to by mouth Lasix and Aldactone 3. Acute non-ST elevated myocardial infarction. Troponin elevated 1.280 and 1.10 Patient maintained on heparin drip cardiology services are following. IV heparin has been DC'd per cardiology 4. Severe aortic stenosis and aortic insufficiency. Patient is being followed at [facility] for workup for TAVR. Per cardiology patient's LV function has deteriorated since last May prolactin level has been ordered if patient remains stable ischemia undergo TAVR next week per cardiology 5. Acute on chronic renal disease. Creatinine 1.48 and 30. This does appear to be patient's baseline we'll continue to monitor 6. Severe underlining coronary artery disease with recent heart cath in May 2018 7. History of COPD 8. History of essential hypertension 9. History of hyperlipidemia 10. History of AAA repair 11. History of previous coronary artery bypass graft surgery DVT prophylaxis heparin. GI prophylaxis Protonix I performed an examination of the patient and discussed their management with the Nurse Practitioner. I have reviewed the Nurse Practitioner's notes and agree with the documented findings and plan of care
[2018-12-07] MEDS ORDERED: FUROSEMIDE 40 MG TAB PO SCH (10:30)
[2018-12-07 11:40] LABS: Glucose,Whole Blood 84 mg/dL (75-99)
[2018-12-07 13:22] VITALS: BP 129/67; RESP 18; TEMP 97
--- NOTE | 2018-12-07 14:26 | P.DS ---
Providers Date of admission: 12/04/18 00:01 Expected date of discharge: 12/07/18 Attending physician: Diana Maxwell Consults: 12/03/18 23:56 Consult Physician Routine Consulting Provider: [facility] Consult Reason/Comments: nstemi Do you want consulting provider notified?: Yes, Notify in am 12/04/18 09:53 Consult Physician Routine Consulting Provider: Kendra Davila Consult Reason/Comments: Pneumonia Do you want consulting provider notified?: Yes Primary care physician: Larissa Israel [facility] Course: Discharge diagnosis 1. Acute hypoxic respiratory failure related to CHF exacerbation and possible pneumonia. Chest x-ray completed showing bibasilar platelike atelectasis at the diaphragm. Moderate cardiomegaly. Pulmonary services following. Patient started on Rocephin and Zithromax IV antibiotics. Sputum culture ordered. Repeat chest x-ray showing bibasilar atelectasis. Discussed case with pulmonary services. Patient is cleared for discharge. Patient will be DC'd on Ceftin for 7 more days per pulmonary recommendation for pulmonary patient to follow-up with [facility] for scheduled TAVR 2. Acute on chronic diastolic just of heart failure. Patient maintained on 40 mg IV Lasix BNP elevated at 14,400. Cardiology services have been consulted. 2-D echo completed showing an EF of 25-30%. IV Lasix has been DC'd per cardiology. She has been switched to by mouth Lasix and Aldactone. Patient has been cleared for discharge from cardiology standpoint. Patient will be discharged on Aldactone and Lasix by mouth. Patient also started on metoprolol. Atenolol and Norvasc DC'd per cardiology 3. Acute non-ST elevated myocardial infarction. Troponin elevated 1.280 and 1.10 Patient maintained on heparin drip cardiology services are following. IV heparin has been DC'd per cardiology 4. Severe aortic stenosis and aortic insufficiency. Patient is being followed at [facility] for workup for TAVR. Per cardiology patient's LV function has deteriorated since last May prolactin level has been ordered if patient remains stable ischemia undergo TAVR next week per cardiology 5. Acute on chronic renal disease. Creatinine 1.48 and 30. This does appear to be patient's baseline we'll continue to monitor. Repeat CMP will be ordered for 3 days due to addition of Aldactone 6. Severe underlining coronary artery disease with recent heart cath in May 2018 7. History of COPD 8. History of essential hypertension 9. History of hyperlipidemia 10. History of AAA repair 11. History of previous coronary artery bypass graft surgery Hospital course This is an 83-year-old male patient of Dr. Israel. Patient presented with complaints of increased shortness of breath. Patient reports his symptoms started approximately 1 week ago. Patient also reports that he has had increased sputum production with green sputum. Patient denies any fevers. Patient also reports he had increased peripheral edema. Patient does have a past medical history of coronary artery disease status post coronary artery bypass graft surgery twice. Patient recently underwent cardiac cath in May 2018 and DAPHNEY which revealed severe aortic stenosis severe aortic insufficiency. Patient reports that he was evaluated by our cardiothoracic team was seen at [facility] in which they referred him to undergo transcutaneous aortic valve replacement. Patient reports he has been doing the pre-op workup including dental work in which he has completed. Additional medical history includes congestive heart failure with an EF of 25%, degenerative arthritis, COPD, hypertension, bowel obstruction and myocardial infarction. EKG completed showing normal sinus rhythm. Left bundle branch block. X-ray completed showing bibasilar platelike atelectasis at the diaphragms. Moderate cardiomegaly. Troponins 1.280, 1.910. Started on heparin drip and cardiology services have been consulted. ENT elevated at 14,400. Patient started on IV Lasix 40 mg every 8 hours. Sputum culture ordered. Patient started on Zithromax and Rocephin for pneumonia. Pulmonary services have been consulted. At this time patient reports he does feel improved. Still having significant sputum production. Patient denies chest pain. Patient denies any nausea vomiting or diarrhea. Patient denies any urinary burning or frequency On 12/05/2018 patient's alert and oriented 3. Patient reports he feels significantly improved. Patient remains on IV Lasix 40 mg every 8 hours. Patient also remains on heparin drip per cardiology. This time patient denies chest pain or shortness breath. Patient denies nausea vomiting or diarrhea. Patient denies any urinary burning or frequency. On 12/06/2018 patient's alert and oriented 3 patient feels improved with shortness of breath. Patient remains on IV Lasix and IV heparin at this time. Creatinine trending down to 1.6. At this time patient denies chest pain or shortness breath. Patient denies nausea vomiting or diarrhea. Patient denies any urinary burning or frequency On 12/07/2018 patient's alert and oriented 3. Patient remains feeling improved. IV Lasix has been DC'd. IV heparin also DC'd per cardiology. Creatinine 1.40. Awaiting cardiology recommendation. At this time patient denies chest pain or shortness of breath. Patient denies nausea vomiting or diarrhea. Patient denies any urinary burning or frequency. Patient remains on Rocephin and Zithromax per pulmonary Patient has been cleared for discharge from cardiology and pulmonary standpoint. Patient will be DC'd on Ceftin per pulmonary recommendation for possible pneumonia. Per cardiology patient will be DC'd on Lasix and Aldactone. Patient to follow-up with [facility] for scheduled TAVR next week. Patient is currently on 2 L nasal cannula which he is maintained on at at home. At this time patient denies chest pain or shortness of breath. Patient denies nausea vomiting or diarrhea. Patient denies any urinary burning or frequency. I performed an examination of the patient and discussed their management with the Nurse Practitioner. I have reviewed the Nurse Practitioner's notes and agree with the documented findings and plan of care Patient Condition at Discharge: Stable Plan - Discharge Summary Discharge Rx Participant: Yes New Discharge Prescriptions: New Spironolactone [Aldactone] 25 mg PO DAILY 30 Days #30 tab Furosemide [Lasix] 40 mg PO DAILY 30 Days #30 tab Metoprolol Succinate (ER) [Toprol XL] 50 mg PO DAILY 30 Days #30 tab.er.24h Cefuroxime Axetil [Ceftin] 500 mg PO BID 7 Days #14 tab Continue Losartan [Cozaar] 50 mg PO DAILY Aspirin 81 mg PO HS Tamsulosin HCl [Flomax] 0.4 mg PO BID Latanoprost Ophth [Xalatan 0.005%] 1 drop BOTH EYES HS Olopatadine HCl [Pataday] 1 drop BOTH EYES HS Discontinued amLODIPine [Norvasc] 5 mg PO DAILY Atenolol [Tenormin] 50 mg PO HS Discharge Medication List Aspirin 81 mg PO HS 11/22/14 [History] Losartan [Cozaar] 50 mg PO DAILY 11/22/14 [History] Tamsulosin HCl [Flomax] 0.4 mg PO BID 12/03/18 [History] Latanoprost Ophth [Xalatan 0.005%] 1 drop BOTH EYES HS 12/04/18 [History] Olopatadine HCl [Pataday] 1 drop BOTH EYES HS 12/04/18 [History] Cefuroxime Axetil [Ceftin] 500 mg PO BID 7 Days #14 tab 12/07/18 [Rx] Furosemide [Lasix] 40 mg PO DAILY 30 Days #30 tab 12/07/18 [Rx] Metoprolol Succinate (ER) [Toprol XL] 50 mg PO DAILY 30 Days #30 tab.er.24h 12/07/18 [Rx] Spironolactone [Aldactone] 25 mg PO DAILY 30 Days #30 tab 12/07/18 [Rx] Follow up Appointment(s)/Referral(s): Larissa Israel MD [Primary Care Provider] - 1-2 days Activity/Diet/Wound Care/Special Instructions: Patient to follow with [facility] for scheduled TAVR Diet heart healthy Activity as tolerated wears home O2 2 liters
--- NOTE | 2018-12-07 14:29 | P.PN ---
Subjective Progress Note Date: 12/07/18 his is an 83-year-old gentleman who sees Dr. HERBIE Neely in the office on regular basis with a past medical history significant for coronary artery disease and status post coronary artery bypass grafting twice, known severe aortic stenosis, known severe aortic insufficiency, advanced chronic obstructive pulmonary disease currently on oxygen at home, as well as multiple comorbid conditions, was admitted to the hospital with shortness of breath. The patient underwent a heart catheterization in May [address] HERBIE Neely and that revealed occluded left main and occluded right coronary artery with patent COTTER to LAD which opacify the LAD very well and also gives collateral to the right coronary artery. At the same time, he underwent transesophageal echocardiogram which revealed normal LV function with evidence off moderate to severe aortic stenosis and moderate to severe aortic insufficiency. At that point the patient was referred to undergo transcutaneous aortic valve replacement. He was seen by Dr. Quintanilla at that point I subsequently he was seen at [facility]. He was requested to have his teeth workup before the procedure and the patient is currently is doing that. This time, he stated that for the last few days, he has been more short of breath and beside that he has been experiencing cough productive of colored sputum. No fever and no chills. No symptoms of chest pain or chest discomfort. He did develop severe bilateral lower extremities edema. He underwent a chest x-ray and that revealed evidence of congestive heart failure with possible pneumonia. The BMP was checked and came in to be at 15,000. The creatinine is slightly abnormal but it seems to be his baseline from before. Beside that the troponin came in to be elevated at 12.9. The EKG showed sinus rhythm with sinus tachycardia and LBBB. The patient currently is on heparin IV, he is on antibiotic for the pneumonia, and he is on Lasix as well as. He stated that he is feeling better overall. 12/07/2018 Patient was seen and examined this morning, overall feels well, anticipating discharge home today. Blood pressure 128/60 with a heart rate in the 60s. He is scheduled to undergo whatever procedure in [place] on Tuesday. The Lasix has been discontinued and the patient has been changed over to oral diuretics. We also added Aldactone to his medication regime. Objective - Vital Signs Vital signs: Vital Signs Temp 97.0 F L 12/07/18 12:00 Pulse 57 L 12/07/18 12:00 Resp 18 12/07/18 12:00 BP 129/67 12/07/18 12:00 Pulse Ox 96 12/07/18 12:00 Intake & Output 12/06/18 12/07/18 12/07/18 18:59 06:59 18:59 Intake Total 480 300 240 Output Total 1300 200 400 Balance -820 100 -160 Weight 73.6 kg Intake: Oral 480 300 240 Output: Urine 1300 200 400 Other: Voiding Method Urinal Urinal Urinal # Voids 1 1 - Exam GENERAL EXAM: Alert, pleasant, 83-year-old white male comfortable in no apparent distress. HEAD: Normocephalic/atraumatic. EYES: Normal reaction of pupils, equal size. Conjunctiva pink, sclera white. NOSE: Clear with pink turbinates. THROAT: No erythema or exudates. NECK: No masses, no JVD, no thyroid enlargement, no adenopathy. CHEST: No chest wall deformity. Symmetrical expansion. LUNGS: Equal air entry with basilar crackles CVS: Regular rate and rhythm, normal S1 and S2, no gallops, systolic ejection murmur heard ABDOMEN: Soft, nontender. No hepatosplenomegaly, normal bowel sounds, no guarding or rigidity. EXTREMITIES: No clubbing, no edema, no cyanosis, 2+ pulses and upper and lower extremities. MUSCULOSKELETAL: Muscle strength and tone normal. SPINE: No scoliosis or deformity SKIN: No rashes CENTRAL NERVOUS SYSTEM: Alert and oriented -3. No focal deficits, tone is normal in all 4 extremities. PSYCHIATRIC: Alert and oriented -3. Appropriate affect. Intact judgment and insight. - Labs CBC & Chem 7: 12/07/18 06:54 12/07/18 06:54 Labs: Abnormal Lab Results - Last 24 Hours (Table) 12/06/18 12/06/18 12/07/18 Range/Units 16:48 21:02 06:54 RBC 3.95 L (4.30-5.90) m/uL Hgb 12.3 L (13.0-17.5) gm/dL Hct 38.9 L (39.0-53.0) % Lymphocytes # 0.4 L (1.0-4.8) k/uL Carbon Dioxide (22-30) mmol/L BUN (9-20) mg/dL Creatinine (0.66-1.25) mg/dL POC Glucose (mg/dL) 101 H 133 H (75-99) mg/dL Total Protein (6.3-8.2) g/dL Albumin (3.5-5.0) g/dL 12/07/18 Range/Units 06:54 RBC (4.30-5.90) m/uL Hgb (13.0-17.5) gm/dL Hct (39.0-53.0) % Lymphocytes # (1.0-4.8) k/uL Carbon Dioxide 32 H (22-30) mmol/L BUN 38 H (9-20) mg/dL Creatinine 1.40 H (0.66-1.25) mg/dL POC Glucose (mg/dL) (75-99) mg/dL Total Protein 5.2 L (6.3-8.2) g/dL Albumin 2.9 L (3.5-5.0) g/dL Microbiology - Last 24 Hours (Table) 12/04/18 17:00 Gram Stain - Final Sputum Sputum Culture - Final Melida albicans Assessment and Plan Plan: Assessment #1 acute hypoxic respiratory failure #2 congestive heart failure exacerbation likely secondary to diastolic dysfunction and aortic stenosis #3 possible tracheobronchitis #4 COPD exacerbation #5 severe aortic stenosis and aortic insufficiency #6 severe underlying coronary artery disease as described above #7 acute non-ST elevation myocardial infarction #8 multiple comorbid conditions including hypertension, dyslipidemia, and history of AAA repair Plan From cardiology's perspective, patient may be able to be discharged home today. We will not make him a follow-up appointment in the office until after he has had his TAVR procedure which is scheduled to be performed on Tuesday. DNP note has been reviewed, I agree with a documented findings and plan of care. Patient was seen and examined.
[2018-12-07 16:22] VITALS: PULSE 72
[2018-12-07] MEDS ORDERED: HEPARIN SODIUM,PORCINE 5,000 UNIT/ML 1 ML VIAL SQ SCH (21:00)
== END 2018-12-07 17:41 | disposition home or self-care (01) | DRG 280 ==
LOC: EC 21:05 → 3SCARD 12-04 00:01
PROVIDERS: ADMIT Internal Medicine; ATTEND Internal Medicine
DX: I13.0 Hypertensive heart and chronic kidney disease with heart failure and stage 1 through stage 4 chronic kidney disease, or unspecified chronic kidney disease (principal); I21.4 Non-ST elevation (NSTEMI) myocardial infarction; I50.33 Acute on chronic diastolic (congestive) heart failure; J18.9 Pneumonia, unspecified organism; J96.01 Acute respiratory failure with hypoxia; J44.0 Chronic obstructive pulmonary disease with (acute) lower respiratory infection; J44.1 Chronic obstructive pulmonary disease with (acute) exacerbation; J98.11 Atelectasis; E78.5 Hyperlipidemia, unspecified; I25.10 Atherosclerotic heart disease of native coronary artery without angina pectoris; I25.2 Old myocardial infarction; I35.2 Nonrheumatic aortic (valve) stenosis with insufficiency; I44.7 Left bundle-branch block, unspecified; N18.9 Chronic kidney disease, unspecified; Z79.82 Long term (current) use of aspirin; Z79.899 Other long term (current) drug therapy; Z85.51 Personal history of malignant neoplasm of bladder; Z86.79 Personal history of other diseases of the circulatory system; Z87.442 Personal history of urinary calculi; Z87.891 Personal history of nicotine dependence; Z95.1 Presence of aortocoronary bypass graft; Z99.81 Dependence on supplemental oxygen
CPT/HCPCS: 36415; 71045; 71046; 80048; 80053; 80061; 82272; 83735; 83880; 84145; 84484; 85025; 85610; 85730; 87070; 87205; 93005; 93306; 94640; 94760; 96365; 96376; 99285